=== PATIENT | male | born 1935 | race Caucasian/White ===

== ENCOUNTER 2018-08-02 00:51 | Observation (INO) | payer MEDICARE, OTHER ==
[2018-08-02 01:29] LABS: APPEARANCE,URINE CLEAR; BILIRUBIN,URINE NEGATIVE (NEGATIVE); COLOR,URINE COLORLESS; GLUCOSE, URINE >=500 mg/dL (NEGATIVE); KETONES,URINE NEGATIVE (NEGATIVE); LEUKOCYTE ESTERASE,URINE NEGATIVE (NEGATIVE); NITRITE,URINE NEGATIVE (NEGATIVE); PROTEIN,URINE NEGATIVE (NEGATIVE); URINE SPECIFIC GRAVITY 1.001; UROBILINOGEN,URINE NEGATIVE mg/dL (<2.0)
--- NOTE | 2018-08-02 01:35 | ER Document Report ---
ED General - General Chief Complaint: General Weakness Stated Complaint: WEAKNESS Time Seen by Provider: 08/02/18 01:19 Notes: Patient is an 83-year-old male that comes to the emergency department for chief complaint of family stating that he was acting confused, slurring his words, and he had a right-sided facial droop. They noticed it when they came home at approximately 10:30 pm daughter states. Duration of symptoms uncertain. They state the facial droop resolved, the slurred words resolved, he is still slightly confused below his baseline. They noticed his blood pressure and blood sugar were both up. He comes by EMS, blood pressure initially in the systolic of 220s, given 0.25 (?) mg of clonidine by EMS. He was formally treated for diabetes but is not currently, he is treated for hypertension with losartan and metoprolol, remaining medical history includes CAD with TX and stents, on clopidogrel, AICD. TRAVEL OUTSIDE OF THE [place] IN LAST 30 DAYS: No - Related Data Allergies/Adverse Reactions: No Known Allergies Allergy (Verified 08/02/18 01:31) Past Medical History - General Information source: Patient - Social History Smoking Status: Never Smoker Frequency of alcohol use: None Drug Abuse: None Lives with: Family Family History: DM, Hypertension, Other - cancer. denies: Reviewed & Not Pertinent - Past Medical History Cardiac Medical History: Reports: Hx Coronary Artery Disease, Hx Heart Attack, H x Hypercholesterolemia, Hx Hypertension Neurological Medical History: Reports: Hx Migraine Endocrine Medical History: Reports: Hx Diabetes Mellitus Type 2, Hx Hypothyroidism Renal/ Medical History: Denies: Hx Peritoneal Dialysis GI Medical History: Reports: Hx Diverticulitis Psychiatric Medical History: Denies: Hx Depression Past Surgical History: Reports: Hx Abdominal Surgery - hiatal hernia., Hx Cardiac Catheterization, Hx Cardiac Surgery - packemaker., Hx Cholecystectomy, Hx Coronary Artery Bypass Graft, Hx Open Heart Surgery - valve replacement, pacemaker., Hx Valve Replacement, Other - Multiple colonocopies - Immunizations Immunizations up to date: Yes Hx Diphtheria, Pertussis, Tetanus Vaccination: Yes Hx Pneumococcal Vaccination: 06/05/15 Review of Systems - Review of Systems Constitutional: No symptoms reported EENT: No symptoms reported Cardiovascular: No symptoms reported Respiratory: No symptoms reported Gastrointestinal: No symptoms reported Genitourinary: No symptoms reported Male Genitourinary: No symptoms reported Musculoskeletal: No symptoms reported Skin: No symptoms reported Hematologic/Lymphatic: No symptoms reported Neurological/Psychological: See HPI Physical Exam - Vital signs Vitals: Temp Resp BP Pulse Ox 97.9 F 13 194/120 H 99 08/02/18 00:59 08/02/18 00:59 08/02/18 00:59 08/02/18 00:59 - Notes Notes: GENERAL: Alert, interacts well. No acute distress. HEAD: Normocephalic, atraumatic. EYES: Pupils equal, round, and reactive to light. Extraocular movements intact. ENT: Oral mucosa moist, tongue midline. Oropharynx unremarkable. Airway patent. Nares patent, no nasal septal hematoma, TM's intact. NECK: Full range of motion. Supple. Trachea midline. LUNGS: Clear to auscultation bilaterally, no wheezes, rales, or rhonchi. No respiratory distress. HEART: Regular rate and rhythm. No murmur ABDOMEN: Soft, non-tender. Non-distended. Bowel sounds present in all 4 negar drants. GENITOURINARY: Deferred EXTREMITIES: Moves all 4 extremities spontaneously. No edema, normal radial and dorsalis pedis pulses bilaterally. No cyanosis. BACK: no cervical, thoracic, lumbar midline tenderness. No saddle anesthesia, normal distal neurovascular exam. NEUROLOGICAL: Alert and oriented to person, place, events, but not year. Normal speech. [cranial nerves II through XII grossly intact]. PSYCH: Normal affect, normal mood. SKIN: Warm, dry, normal turgor. No rashes or lesions noted. Course - Re-evaluation Re-evalutation: On my evaluation patient does not have neurological deficit. Family reports he was slurring his words, had a right-sided facial droop, and was confused. He got the year wrong but otherwise is oriented. Patient was extremely hypertensive initially, given clonidine, his blood pressure plummeted from 220 to 120 systolic. I suspect hypertensive emergency causing neurological symptoms versus TIA. CAT scan of the head unremarkable, chest x-ray unremarkable, general workup unremarkable. Vision remains asymptomatic on reevaluation. Discussed with family. Blood pressure started to trend back up, probably will rebound after clonidine, I recommend admission for neurological symptoms with hypertensive emergency versus TIA. Family is very agreeable with this, patient agreeable with this as well. Discussed with Dr. Arauz. Discussed with Dr. Roblero, patient admitted to the [facility]. - Vital Signs Vital signs: Temp Pulse Resp BP Pulse Ox 97.3 F 58 L 14 142/67 H 100 08/02/18 05:05 08/02/18 05:05 08/02/18 05:05 08/02/18 05:05 08/02/18 05:05 - Laboratory Result Diagrams: 08/02/18 01:27 08/02/18 01:27 Laboratory results interpreted by me: 08/02/18 08/02/18 08/02/18 01:13 01:27 01:27 Hgb 11.7 L Hct 36.3 L MCH 25.7 L RDW 20.9 H Sodium 132.5 L Chloride 96 L BUN 33 H Creatinine 1.81 H Est GFR ( Amer) 44 L Est GFR (Non-Af Amer) 36 L Glucose 291 H Urine Glucose (UA) >=500 H Urine Blood SMALL H Discharge - Discharge Clinical Impression: Hypertensive emergency Altered mental status Qualifiers: Altered mental status type: unspecified Qualified Code(s): R41.82 - Altered mental status, unspecified Condition: Stable Disposition: ADMITTED INPATIENT Admitting Provider: Hospitalist Unit Admitted: [facility]
[2018-08-02 01:39] LABS: ABSOLUTE EOSINOPHILS # (AUTO) 0.3 10^3/uL (0.0-0.6); ABSOLUTE LYMPHOCYTES (AUTO) 1.2 10^3/uL (0.5-4.7); ABSOLUTE MONOCYTES (AUTO) 0.6 10^3/uL (0.1-1.4); ABSOLUTE NEUT (AUTO) 5.4 10^3/uL (1.7-8.2); BASOPHILS % (AUTO) 0.2 % (0-2); EOSINOPHILS % (AUTO) 3.4 % (0-6); HEMATOCRIT 36.3 % (37.9-51.0); HEMOGLOBIN 11.7 g/dL (13.5-17.0); LYMPHOCYTES % (AUTO) 16.2 % (13-45); MEAN CORPUSCULAR HEMOGLOBIN 25.7 pg (27.0-33.4); MEAN CORPUSCULAR HGB CONC 32.2 g/dL (32.0-36.0); MEAN CORPUSCULAR VOLUME 80 fl (80-97); MONOCYTES % (AUTO) 7.8 % (3-13); PLATELET COUNT 201 10^3/uL (150-450); RED BLOOD COUNT 4.55 10^6/uL (4.35-5.55); RED CELL DISTRIBUTION WIDTH 20.9 % (11.5-14.0); SEGMENTED NEUTROPHILS % (AUTO) 72.4 % (42-78); TOTAL CELLS COUNTED % (AUTO) 100 %; WHITE BLOOD COUNT 7.5 10^3/uL (4.0-10.5)
[2018-08-02 01:53] LABS: ALANINE AMINOTRANSFERASE 21 U/L (21-72); ALBUMIN 3.8 g/dL (3.5-5.0); ALKALINE PHOSPHATASE 87 U/L (38-126); ANION GAP 10 (5-19); ASPARTATE AMINO TRANSFERASE 17 U/L (17-59); BILIRUBIN,DIRECT 0.2 mg/dL (0.0-0.4); BILIRUBIN,TOTAL 0.5 mg/dL (0.2-1.3); BLOOD UREA NITROGEN 33 mg/dL (7-20); CALCIUM 8.8 mg/dL (8.4-10.2); CARBON DIOXIDE 27 mmol/L (22-30); CHLORIDE 96 mmol/L (98-107); CREATINE KINASE 65 U/L (55-170); GLUCOSE 291 mg/dL (75-110); POTASSIUM 4.7 mmol/L (3.6-5.0); SODIUM 132.5 mmol/L (137-145)
--- NOTE | 2018-08-02 02:03 | RADIOLOGY REPORT (SQ) ---
EXAM DESCRIPTION: CT HEAD WITHOUT IV CONTRAST COMPLETED DATE/TME: 08/02/2018 01:31 CLINICAL HISTORY: 83 years, Male, confusion, slurred speech COMPARISON: April 05, 2017 Technique: Contiguous axial images of the brain were obtained without the administration of intravenous contrast. Coronal and sagittal reformats obtained and reviewed. This exam was performed according to our departmental dose-optimization program which includes use of Automated Exposure Control, adjustment of the mA and/or kV according to patient size and/or use of iterative reconstruction technique. Findings: Brain: Mild cerebral atrophy. Periventricular and deep white matter hypodensities, most commonly due to nonspecific white matter chronic microvascular ischemia.No hemorrhage. No territorial infarct. No mass effect. No herniation. Ventricles: Within normal limits for patient's age. Bones: No acute osseous abnormality. Paranasal sinuses: Unremarkable. Mastoid air cells: Unremarkable. Soft tissues: No acute abnormality. IMPRESSION: No acute intracranial abnormalities.
[2018-08-02 02:05] LABS: CREATINE KINASE MB 1.93 ng/mL (<4.55); TROPONIN I 0.014 ng/mL
--- NOTE | 2018-08-02 02:05 | RADIOLOGY REPORT (SQ) ---
EXAM DESCRIPTION: XR CHEST 1 VIEW COMPLETED DATE/TME: 08/02/2018 01:32 CLINICAL HISTORY: 83 years, Male, AMS Comparison: None FINDINGS: Minimal left basilar subsegmental atelectasis. No pleural effusion. No pneumothorax. Cardiac silhouette is at the upper limits of normal for size. Pacemaker from a left subclavian approach. Coronary artery stent is noted. Patient has had a median sternotomy. No acute osseous abnormality. Soft tissues are unremarkable. IMPRESSION: No acute findings. No focal lung consolidation.
[2018-08-02] MEDS ORDERED: NITROGLYCERIN 0.4 MG/TAB 25 TAB/BOTTLE SL PRN (03:16)
[2018-08-02] MEDS ORDERED: DOCUSATE SODIUM 100 MG CAPSULE PO PRN (03:17)
[2018-08-02] MEDS ORDERED: MAGNESIUM HYDROXIDE SUSP 30 ML UDCUP PO PRN (03:17)
[2018-08-02] MEDS ORDERED: HYDRALAZINE HCL INJ/PF 20 MG/1 ML SDV IV PRN (03:17)
[2018-08-02] MEDS ORDERED: ACETAMINOPHEN 325 MG TABLET PO PRN (03:17)
[2018-08-02] MEDS ORDERED: ASPIRIN 325 MG TABLET, ENT COATED PO ONE (03:21)
[2018-08-02] MEDS ORDERED: ATORVASTATIN CALCIUM 40 MG TABLET PO ONE (03:45)
[2018-08-02] MEDS: HEPARIN SOD (PORCINE) 5,000 UNIT/ML 1 ML SYRINGE SUBCUT SCH ×3 (05:49→22:43)
[2018-08-02] MEDS: LANSOPRAZOLE 30 MG TAB.RAP.DR PO SCH ×2 (05:53→17:29)
--- NOTE | 2018-08-02 06:26 | PDOC H&P ---
History of Present Illness Admission Date/PCP: 08/02/18 03:20 GABINO PEREIRA MD Patient complains of: Slurred speech History of Present Illness: LILIA FANG is a 83 year old male with a past medical history of coronary artery disease, valve replacement x2, permanent pacemaker, type 2 diabetes, chronic kidney disease 3, and osteoarthritis. Patient was found by family at approximately 10:30 PM with symptoms of unclear onset of confusion, slurred speech, right-sided facial droop of unclear onset. EMS was called finding his blood pressure of 220/120 he receives clonidine and a blood glucose greater than 200. In the emergency room he has returned to his baseline with an unremarkable workup with exception to uncontrolled blood pressure and hyperglycemia. Patient denies recent change in medications but admits to dietary indiscretion. He denies palpitations, chest pain, headache and otherwise feels well. He denies previous episode. Past Medical History Cardiac Medical History: Reports: Coronary Artery Disease, Myocardial Infarction, Hyperlipidema, Hypertension Neurological Medical History: Reports: Migraine Endocrine Medical History: Reports: Diabetes Mellitus Type 2, Hypothyroidism GI Medical History: Reports: Diverticulitis Psychiatric Medical History: Denies: Depression Hematology: Reports: Anemia Past Surgical History Past Surgical History: Reports: Cardiac Catheterization, Cholecystectomy, Coronary Artery Bypass Graft, Valve Replacement, Other - Multiple colonocopies Social History Smoking Status: Former Smoker Frequency of Alcohol Use: None Hx Recreational Drug Use: No Drugs: None Hx Prescription Drug Abuse: No - Advance Directive Resuscitation Status: Full Code Family History Family History: DM, Hypertension, Other - cancer. denies: Reviewed & Not Pertinent Parental Family History Reviewed: Yes Children Family History Reviewed: Yes Sibling(s) Family History Reviewed.: Yes Medication/Allergy Home Medications: Atorvastatin Calcium [Lipitor 40 mg Tablet] 40 mg PO QHS 04/05/17 Clopidogrel Bisulfate [Plavix 75 mg Tablet] 75 mg PO DAILY 04/05/17 Cyanocobalamin (Vitamin B-12) [Vitamin B-12] 1,000 mcg PO DAILY 04/05/17 Cyclosporine 0.05% Oph Emulsio [Restasis 0.05% Oph Emulsion Pf 0.4 ml] 1 drop OU BID 04/05/17 Fenofibrate Nanocrystallized [Tricor 48 mg Tablet] 54 mg PO QHS 04/05/17 Folic Acid [Folvite 1 mg Tablet] 1 mg PO DAILY 04/05/17 Isosorbide Mononitrate [Isosorbide Mononitrate ER] 0.5 tab PO QAM 04/05/17 Leflunomide [Arava] 10 mg PO DAILY 04/05/17 Levothyroxine Sodium [Synthroid 0.05 mg Tablet] 0.05 mg PO DAILY 04/05/17 Loratadine [Claritin] 10 mg PO DAILY 04/05/17 Metoprolol Tartrate [Lopressor 25 mg Tablet] 12.5 mg PO Q12 04/05/17 Nitroglycerin [Nitrostat] 0.4 mg SL Q5MP PRN 04/05/17 Omeprazole 40 mg PO DAILY 04/05/17 Tramadol HCl/Acetaminophen [Ultracet 37.5 mg/325 mg Tablet] 1 tab PO Q8HP PRN 04/05/17 Prednisone 1 tab PO DAILY 04/06/17 Cefuroxime Axetil [Ceftin 250 mg Tablet] 1 tab PO BID #20 tablet 04/07/17 Allergies/Adverse Reactions: No Known Allergies Allergy (Verified 08/02/18 01:31) Review of Systems Constitutional: ABSENT: chills, fever(s), headache(s), weight gain, weight loss Eyes: ABSENT: visual disturbances Ears: ABSENT: hearing changes Cardiovascular: ABSENT: chest pain, dyspnea on exertion, edema, orthropnea, palpitations Respiratory: ABSENT: cough, hemoptysis Gastrointestinal: ABSENT: abdominal pain, constipation, diarrhea, hematemesis, hematochezia, nausea, vomiting Genitourinary: ABSENT: dysuria, hematuria Musculoskeletal: ABSENT: joint swelling Integumentary: ABSENT: rash, wounds Neurological: ABSENT: abnormal gait, abnormal speech, confusion, dizziness, focal weakness, syncope Psychiatric: ABSENT: anxiety, depression, homidical ideation, suicidal ideation Endocrine: ABSENT: cold intolerance, heat intolerance, polydipsia, polyuria Hematologic/Lymphatic: ABSENT: easy bleeding, easy bruising Physical Exam Vital Signs: Temp Pulse Resp BP Pulse Ox 97.3 F 58 L 14 142/67 H 100 08/02/18 05:05 08/02/18 05:05 08/02/18 05:05 08/02/18 05:05 08/02/18 05:05 Intake & Output 07/31/18 08/01/18 08/02/18 11:59 11:59 11:59 Weight 70.3 kg General appearance: PRESENT: no acute distress, cooperative, thin Head exam: PRESENT: atraumatic, normocephalic Eye exam: PRESENT: conjunctiva pink, EOMI, PERRLA. ABSENT: scleral icterus Ear exam: PRESENT: normal external ear exam Mouth exam: PRESENT: moist, tongue midline Neck exam: ABSENT: carotid bruit, JVD, lymphadenopathy, thyromegaly Respiratory exam: PRESENT: clear to auscultation hunter, tachypnea. ABSENT: rales, rhonchi, wheezes Cardiovascular exam: PRESENT: RRR, +S1, +S2, systolic murmur Pulses: PRESENT: normal dorsalis pedis pul Vascular exam: PRESENT: normal capillary refill GI/Abdominal exam: PRESENT: normal bowel sounds, soft. ABSENT: distended, guarding, mass, organolmegaly, rebound, tenderness Rectal exam: PRESENT: deferred Extremities exam: PRESENT: full ROM. ABSENT: calf tenderness, clubbing, pedal edema Neurological exam: PRESENT: alert, awake, oriented to person, oriented to place, oriented to time, oriented to situation, CN II-XII grossly intact. ABSENT: motor sensory deficit Psychiatric exam: PRESENT: appropriate affect, normal mood. ABSENT: homicidal ideation, suicidal ideation Skin exam: PRESENT: dry, intact, warm. ABSENT: cyanosis, rash Results Laboratory Results: 08/02/18 01:27 08/02/18 01:27 08/02/18 08/02/18 08/02/18 01:13 01:27 01:27 WBC 7.5 RBC 4.55 Hgb 11.7 L Hct 36.3 L MCV 80 MCH 25.7 L MCHC 32.2 RDW 20.9 H Plt Count 201 Seg Neutrophils % 72.4 Lymphocytes % 16.2 Monocytes % 7.8 Eosinophils % 3.4 Basophils % 0.2 Absolute Neutrophils 5.4 Absolute Lymphocytes 1.2 Absolute Monocytes 0.6 Absolute Eosinophils 0.3 Absolute Basophils 0.0 Sodium 132.5 L Potassium 4.7 Chloride 96 L Carbon Dioxide 27 Anion Gap 10 BUN 33 H Creatinine 1.81 H Est GFR ( Amer) 44 L Est GFR (Non-Af Amer) 36 L Glucose 291 H Calcium 8.8 Total Bilirubin 0.5 AST 17 ALT 21 Alkaline Phosphatase 87 Total Protein 7.0 Albumin 3.8 Urine Color COLORLESS Urine Appearance CLEAR Urine pH 7.0 Ur Specific [place] 1.001 Urine Protein NEGATIVE Urine Glucose (UA) >=500 H Urine Ketones NEGATIVE Urine Blood SMALL H Urine Nitrite NEGATIVE Ur Leukocyte Esterase NEGATIVE Urine WBC (Auto) 0 Urine RBC (Auto) 08/02/18 01:40 WBC RBC Hgb Hct MCV MCH MCHC RDW Plt Count Seg Neutrophils % Lymphocytes % Monocytes % Eosinophils % Basophils % Absolute Neutrophils Absolute Lymphocytes Absolute Monocytes Absolute Eosinophils Absolute Basophils Sodium Potassium Chloride Carbon Dioxide Anion Gap BUN Creatinine Est GFR ( Amer) Est GFR (Non-Af Amer) Glucose Calcium Total Bilirubin AST ALT Alkaline Phosphatase Total Protein Albumin Urine Color Cancelled Urine Appearance Cancelled Urine pH Cancelled Ur Specific [place] Cancelled Urine Protein Cancelled Urine Glucose (UA) Cancelled Urine Ketones Cancelled Urine Blood Cancelled Urine Nitrite Cancelled Ur Leukocyte Esterase Cancelled Urine WBC (Auto) Cancelled Urine RBC (Auto) Cancelled 08/02/18 08/02/18 01:27 01:27 Creatine Kinase 65 CK-MB (CK-2) 1.93 Troponin I 0.014 Impressions: Head CT 08/02/18 01:31 IMPRESSION: No acute intracranial abnormalities. Chest X-Ray 08/02/18 01:32 IMPRESSION: No acute findings. No focal lung consolidation. Assessment & Plan - Diagnosis (1) Hypertensive emergency Is this a current diagnosis for this admission?: Yes Plan: Resume outpatient regiment, hydralazine and Lopressor as needed (2) TIA (transient ischemic attack) Is this a current diagnosis for this admission?: Yes Plan: Likely secondary to #1, however increased risk with prosthetic cardiac valves, patient is unaware of his cardiac valves were placed will obtain records from [place], follow-up MRI, 2D echo and carotid Doppler. Continue aspirin and Plavix (3) Diabetes Qualifiers: Diabetes mellitus type: type 2 Diabetes mellitus complication status: with kidney complications Chronic kidney disease stage: stage 3 (moderate) Is this a current diagnosis for this admission?: Yes Plan: Suboptimal control, evaluate A1c, hold metformin, continue Humalog sliding scale. Consider long-acting insulin.
[2018-08-02 07:17] LABS: ABSOLUTE EOSINOPHILS # (AUTO) 0.3 10^3/uL (0.0-0.6); ABSOLUTE LYMPHOCYTES (AUTO) 1.3 10^3/uL (0.5-4.7); ABSOLUTE MONOCYTES (AUTO) 0.5 10^3/uL (0.1-1.4); ABSOLUTE NEUT (AUTO) 4.1 10^3/uL (1.7-8.2); BASOPHILS % (AUTO) 0.8 % (0-2); EOSINOPHILS % (AUTO) 4.6 % (0-6); HEMATOCRIT 33.9 % (37.9-51.0); LYMPHOCYTES % (AUTO) 20.3 % (13-45); MEAN CORPUSCULAR HEMOGLOBIN 25.5 pg (27.0-33.4); MEAN CORPUSCULAR HGB CONC 32.5 g/dL (32.0-36.0); MEAN CORPUSCULAR VOLUME 79 fl (80-97); MONOCYTES % (AUTO) 8.3 % (3-13); PLATELET COUNT 201 10^3/uL (150-450); RED BLOOD COUNT 4.32 10^6/uL (4.35-5.55); RED CELL DISTRIBUTION WIDTH 20.9 % (11.5-14.0); TOTAL CELLS COUNTED % (AUTO) 100 %; WHITE BLOOD COUNT 6.2 10^3/uL (4.0-10.5)
[2018-08-02 08:12] LABS: ERYTHROCYTE SEDIMENTATION RATE 15 mm/hr (0-20)
[2018-08-02 08:16] LABS: CHOLESTEROL 163.46 mg/dL (0-200); TRIGLYCERIDES 87 mg/dL (<150)
[2018-08-02 08:27] LABS: DIRECT LDL 102 mg/dL (<100)
[2018-08-02] MEDS: ISOSORBIDE MONONITRATE 30 MG TAB.ER.24H PO SCH (08:46)
[2018-08-02] MEDS: METOPROLOL TARTRATE 25 MG TABLET PO SCH ×2 (09:26→22:45)
[2018-08-02] MEDS: PREDNISONE 5 MG TABLET PO SCH (09:26)
[2018-08-02] MEDS: CLOPIDOGREL BISULFATE 75 MG TABLET PO SCH (09:27)
[2018-08-02] MEDS: FOLIC ACID 1 MG TABLET PO SCH (09:27)
[2018-08-02] MEDS: LORATADINE 10 MG TABLET PO SCH (09:27)
[2018-08-02] MEDS: LEFLUNOMIDE 20 MG TABLET PO SCH (09:27)
[2018-08-02 14:19] LABS: FREE T3 2.75 pg/mL (2.77-5.27); FREE T4 (FREE THYROXINE) 1.16 ng/dL (0.78-2.19)
--- NOTE | 2018-08-02 14:48 | RADIOLOGY REPORT (SQ) ---
EXAM DESCRIPTION: CAROTID DOPPLER COMPLETED DATE/TIME: 08/02/2018 1:19 pm REASON FOR STUDY: tia R facial droop COMPARISON: None. TECHNIQUE: Grayscale ultrasound, Doppler velocity and spectra, and color Doppler images acquired of the extra-cranial carotid and vertebral arteries. Images stored on PACS. LIMITATIONS: None. FINDINGS: RIGHT CAROTID CCA Velocities: Within normal limits. ICA Velocities Peak systolic 1.55 m/s. End diastolic 0.53 m/s. Proximal ICA/CCA peak systolic ratio 2.7. Moderate plaque proximal ICA. LEFT CAROTID CCA Velocities: Within normal limits. ICA Velocities Peak systolic 0.92 m/s. End diastolic 0.32 m/s. Proximal ICA/CCA peak systolic ratio 1.5. Moderate plaque bulb and proximal ICA. VERTEBRAL ARTERIES: Antegrade flow. Normal waveforms. SUBCLAVIAN ARTERIES: Not imaged. OTHER: No other significant finding. 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 Left: Less than 50% stenosis ICA. COMMENT: Quality ID #[id number]: Velocity criteria are extrapolated from the diameter data as defined by t he Society of Radiologists in Ultrasound Consensus Conference. Radiology 2003: 229; 340-346. TECHNICAL DOCUMENTATION: JOB ID: [id number] [employer]- All Rights Reserved Reading location - IP/workstation name: [email or web address]
--- NOTE | 2018-08-02 20:36 | Progress Note ---
Provider Note Provider Note: LILIA FANG is a 83 year old male with a past medical history of coronary artery disease, valve replacement x2, permanent pacemaker, type 2 diabetes, chronic kidney disease 3, and osteoarthritis who was admitted early this morning (3 am) for HTN emergency and TIA workup. Overnight events, vital signs, laboratory evaluations, and imaging reviewed. Briefly met w/ patient and family. Agree with the plan of care as established by Albertina. (1) Hypertensive emergency Now normotenstive; BP today 134/58 Continue home regiment of isosorbid, and metoprolol with IV hydralazine and Lopressor as needed. Cardiac diet. (2) TIA (transient ischemic attack) Likely secondary to #1, however increased risk with prosthetic cardiac valves, patient is unaware of his cardiac valves were placed will obtain records from [place], follow-up MRI, 2D echo and carotid Doppler. Admited to [facility] on telemetry; no abnormal rhythms noted. Head CT is benign. Not a candidate for MRI r/t pacemaker. Echo pending. Carotid dopplers are negative for hemodynamically significant stenosis. A1C 10.7%. Thyroid panel, lipid panel, and ESR are acceptable. Continue aspirin and Plavix (3) Diabetes A1C 10.7% Pt reports he has been diet controlled for several months; stopped previous unknown oral medication due to rash development. Consistent carb diet w/ Humalog sliding scale. Pt resistant to d/c on insulin therapy. Will need to identify possible allergy prior to initiating oral antidiabetic agents. Will ask registered medical assistant and patient educator to meet with patient. Anticipate d/c in AM once echo results are available.
[2018-08-02] MEDS ORDERED: ATORVASTATIN CALCIUM 40 MG TABLET PO SCH (22:00)
[2018-08-02] MEDS ORDERED: FENOFIBRATE NANOCRYSTALLIZED 48 MG TABLET PO SCH (22:00)
--- NOTE | 2018-08-02 22:12 | EKG REPORT ---
SEVERITY:- ABNORMAL ECG - SINUS RHYTHM CONSIDER ANTEROSEPTAL INFARCT ABNORMAL T, CONSIDER ISCHEMIA, LATERAL LEADS : Confirmed by: Cathy Hilton 02-Aug-2018 22:12:04
[2018-08-03 05:15] LABS: ABSOLUTE BASOPHILS # (AUTO) 0.1 10^3/uL (0.0-0.2); ABSOLUTE EOSINOPHILS # (AUTO) 0.2 10^3/uL (0.0-0.6); ABSOLUTE LYMPHOCYTES (AUTO) 1.3 10^3/uL (0.5-4.7); ABSOLUTE MONOCYTES (AUTO) 0.4 10^3/uL (0.1-1.4); ABSOLUTE NEUT (AUTO) 5.4 10^3/uL (1.7-8.2); BASOPHILS % (AUTO) 1.1 % (0-2); EOSINOPHILS % (AUTO) 2.8 % (0-6); HEMATOCRIT 33.3 % (37.9-51.0); HEMOGLOBIN 11.1 g/dL (13.5-17.0); LYMPHOCYTES % (AUTO) 17.2 % (13-45); MEAN CORPUSCULAR HEMOGLOBIN 25.7 pg (27.0-33.4); MEAN CORPUSCULAR HGB CONC 33.2 g/dL (32.0-36.0); MEAN CORPUSCULAR VOLUME 78 fl (80-97); MONOCYTES % (AUTO) 5.6 % (3-13); PLATELET COUNT 199 10^3/uL (150-450); RED BLOOD COUNT 4.29 10^6/uL (4.35-5.55); RED CELL DISTRIBUTION WIDTH 20.7 % (11.5-14.0); SEGMENTED NEUTROPHILS % (AUTO) 73.3 % (42-78); TOTAL CELLS COUNTED % (AUTO) 100 %; WHITE BLOOD COUNT 7.4 10^3/uL (4.0-10.5)
[2018-08-03] MEDS: HEPARIN SOD (PORCINE) 5,000 UNIT/ML 1 ML SYRINGE SUBCUT SCH (05:36)
[2018-08-03] MEDS: LANSOPRAZOLE 30 MG TAB.RAP.DR PO SCH (05:38)
[2018-08-03] MEDS: ISOSORBIDE MONONITRATE 30 MG TAB.ER.24H PO SCH (08:15)
[2018-08-03] MEDS: LEFLUNOMIDE 20 MG TABLET PO SCH (09:01)
[2018-08-03] MEDS: FOLIC ACID 1 MG TABLET PO SCH (09:02)
[2018-08-03] MEDS: PREDNISONE 5 MG TABLET PO SCH (09:02)
[2018-08-03] MEDS: CLOPIDOGREL BISULFATE 75 MG TABLET PO SCH (09:02)
[2018-08-03] MEDS: LORATADINE 10 MG TABLET PO SCH (09:02)
[2018-08-03] MEDS: METOPROLOL TARTRATE 25 MG TABLET PO SCH (09:03)
[2018-08-03] MEDS ORDERED: ASPIRIN 81 MG TABLET, ENT COATED PO SCH (10:00)
--- NOTE | 2018-08-03 10:48 | XCELERA REPORT ---
[address] [address] Transthoracic Echocardiogram Report Name: LILIA FANG Age: 83 yrs Gender: Male : 1935 Patient Status: Inpatient Patient Location: [address] [place], [place] [address] Study Date: 08/02/2018 10:33 AM Height: 68 in Weight: 154 lb BSA: 1.8 m2 Procedure: A two-dimensional transthoracic echocardiogram with color flow and Doppler was performed. The study was technically difficult with many images being suboptimal in quality. Reason For Study: TIA History: TIA. Ordering Physician: LILIA BRIGGS Performed By: Mila Hawkins Interpretation Summary There is no obvious cardiac source of embolus noted on this transthoracic echocardiogram. Follow-up with a JESSIE is suggested if cardiac source is still suspected. RECOMMEND ANTIBIOTICS FOR SBE PROPHYLAXIS. TIA The left ventricle is normal in size. There is mild concentric left ventricular hypertrophy. LV EF is 60% The left ventricular ejection fraction is within normal limits. Doppler measurements suggest impaired left ventricular relaxation, which is associated with grade I/IV or mild diastolic dysfunction The apicalinferior wall and the apical IV septalwalls are mildlly dyskinetic.Th st of the LV valladares contract bormally. The right ventricle is not well visualized secondary to technical limitations Possibe mild RV enlargement.Pacer /AICD lead in RA and RV. The right ventricular systolic function is normal. The right atrium is normal. The left atrial size is normal. There is a bioprosthetic mitral valve. Norally functioning valve with race MR.No vegetations seen. No aortic regurgitation is present. There is a bioprosthetic aortic valve. Peak Gradient is 27 mm of Hg , which may be normal for a bioprosthetic valve. There is a mild to moderate amount of tricuspid regurgitation There is mild pulmonary hypertension by echo RVSP is 39 mm of Hg , with RA mean of10. There is a mild amount of pulmonic regurgitation The aortic root is normal size. There is no pericardial effusion. There is no obvious cardiac source of embolus noted on this transthoracic echocardiogram. Follow-up with a JESSIE is suggested if cardiac source is still suspected RECOMMEND ANTIBIOTICS FOR SBE PROPHYLAXIS MMode/2D Measurements & Calculations RVDd: 3.2 cm LVIDd: 4.5 cm FS: 24.0 % Ao root diam: 2.3 cm IVSd: 1.3 cm LVIDs: 3.4 cm EDV(Teich): 94.0 ml Ao root area: 4.2 cm2 LVPWd: 1.2 cm ESV(Teich): 48.9 ml LA dimension: 3.8 cm EF(Teich): 47.9 % LVOT diam: 1.8 cm LVOT area: 2.7 cm2 Doppler Measurements & Calculations MV E max lidya: MV P1/2t max lidya: Ao V2 max: LV V1 max P.9 cm/sec 121.4 cm/sec 257.9 cm/sec 5.7 mmHg MV A max lidya: MV P1/2t: 107.1 msec Ao max PG: LV V1 mean P.8 cm/sec MVA(P1/2t): 2.1 cm2 26.6 mmHg 2.8 mmHg MV E/A: 0.92 MV dec slope: Ao V2 mean: LV V1 max: 183.2 cm/sec 119.0 cm/sec 332.1 cm/sec2 Ao mean PG: LV V1 mean: MV dec time: 0.36 sec15.6 mmHg 76.1 cm/sec Ao V2 VTI: 61.6 cm LV V1 VTI: 24.1 cm MCKAYLA(I,D): 1.1 cm2 MCKAYLA(V,D): 1.2 cm2 SV(LVOT): 64.7 ml PA V2 max: PI end-d lidya: TR max lidya: 79.5 cm/sec 91.1 cm/sec 267.6 cm/sec PA max P.5 mmHg TR max P.6 mmHg MV P1/2t-pr_phl: 107.1 msec Left Ventricle The left ventricle is normal in size. There is mild concentric left ventricular hypertrophy. LV EF is 60%. The left ventricular ejection fraction is within normal limits. Doppler measurements suggest impaired left ventricular relaxation, which is associated with grade I/IV or mild diastolic dysfunction. The apicalinferior wall and the apical IV septalwalls are mildlly dyskinetic.Th st of the LV valladares contract bormally. Right Ventricle The right ventricle is not well visualized secondary to technical limitations. Possibe mild RV enlargement.Pacer /AICD lead in RA and RV. The right ventricular systolic function is normal. Atria The right atrium is normal. The left atrial size is normal. Mitral Valve There is a bioprosthetic mitral valve. Norally functioning valve with race MR.No vegetations seen. Aortic Valve There is no aortic valvular vegetation. No aortic regurgitation is present. There is a bioprosthetic aortic valve. Peak Gradient is 27 mm of Hg , which may be normal for a bioprosthetic valve. Tricuspid Valve There is no tricuspid stenosis. There is a mild to moderate amount of tricuspid regurgitation. There is mild pulmonary hypertension by echo. RVSP is 39 mm of Hg , with RA mean of10. Pulmonic Valve There is no pulmonic valvular stenosis. There is a mild amount of pulmonic regurgitation. Great Vessels The aortic root is normal size. Effusions There is no pericardial effusion. : LILIA BRIGGS > Carlota Cardona
[2018-08-03] MEDS ORDERED: DEXTROSE 40% GEL 15 GM TUBE PO PRN ×2 (11:35)
[2018-08-03] MEDS ORDERED: DEXTROSE 50%-WATER 25 GM/50 ML DISP.SYRIN IV PRN ×2 (11:35)
[2018-08-03] MEDS ORDERED: GLUCAGON,HUMAN RECOMB 1 MG INJ IM PRN (11:35)
[2018-08-03] MEDS ORDERED: INSULIN GLARGINE,HUM.REC.ANLOG 300 UNIT/3 ML INSULN.PEN SUBCUT SCH (11:45)
[2018-08-03 12:28] VITALS: BP 142/67
[2018-08-03] MEDS ORDERED: INSULIN REG, HUMAN 100 UNIT/ML 3 ML VIAL (PYX) SUBCUT SCH (16:00)
--- NOTE | 2018-08-07 13:23 | PDOC DISCHARGE SUMMARY ---
General - Admit/Disc Date/PCP Admission Date/Primary Care Provider: 08/02/18 03:20 GABINO PEREIRA MD Discharge Date: 08/03/18 - Discharge Diagnosis (1) Diabetes Is this a current diagnosis for this admission?: Yes Summary: A1C 10.7% Pt reports he has been diet controlled for several months; stopped previous unknown oral medication due to rash development. While admitted, his blood glucose was managed with sliding scale humalog. freight elevator erector and patient educator to meet with patient. Patient and were concerned about starting oral therapy as they believe that he previously had a reaction to an unknown diabetic medication. They are agreeable to long acting insulin; which is warranted given his A1c is >10. He was started on Lantus 10 units once daily. He is advised to keep a log of his blood glucose to present to his PCP at follow up appointment. (2) Hypertensive emergency Is this a current diagnosis for this admission?: Yes Summary: Adequate blood pressure achieved through resumption of home medication regiment: metoprolol, isosorbid, and furosemide. Recommend low sodium diet. Keep blood pressure log and present to PCP at follow up visit. (3) Rheumatoid arthritis Is this a current diagnosis for this admission?: Yes Summary: Continue outpatient regiment. (4) TIA (transient ischemic attack) Is this a current diagnosis for this admission?: Yes Summary: Likely secondary to #1, however increased risk with prosthetic cardiac valves, HTN, and DM2. Admited to [facility] on continuous cardiac telemetry; no abnormal rhythms noted. Head CT is benign. Not a candidate for MRI r/t pacemaker. Echocardiogram revealed LVEF 60% with grade I diastolic disfunction, and mild pulmonary hypertension. No obvious cardiac source/embolus to explain TIA symtoms. Carotid dopplers are negative for hemodynamically significant stenosis. A1C 10.7%. Thyroid panel, lipid panel, and ESR are acceptable. Patient is encouraged to continue aspirin, Plavix, and statin therapy. No indications for anticoagulation. Recommend obtaining better glucose and blood pressure control for risk modification. May also benefit from Event monitoring to assess for arrhythmias as cause of his symptoms. Patient is discharged to home in stable condition. He is advised to follow up with his primary care provier within 1 week and his blasting coal miner as scheduled. Return to the emergency department as needed for concerning symptoms. - Additional Information Resuscitation Status: Full Code Discharge Diet: Cardiac, Diabetic Discharge Activity: Activity As Tolerated, Balance Activity w/Rest, Weigh Daily Prescriptions: Insulin Glargine,Hum.rec.anlog [Lantus Insulin 100 Unit/mL] 10 unit SUBCUT DAILY #1 insuln.pen Pen Needle, Diabetic [Insulin Pen Needle] 1 each MC DAILY #30 dis.needle Home Medications: Clopidogrel Bisulfate [Plavix 75 mg Tablet] 75 mg PO DAILY 04/05/17 Cyanocobalamin (Vitamin B-12) [Vitamin B-12] 1,000 mcg PO DAILY 04/05/17 Fenofibrate Nanocrystallized [Tricor 48 mg Tablet] 54 mg PO QHS MDD note dose 04/05/17 Folic Acid [Folvite 1 mg Tablet] 1 mg PO DAILY 04/05/17 Isosorbide Mononitrate [Isosorbide Mononitrate ER] 15 mg PO QAM 04/05/17 Levothyroxine Sodium [Synthroid 0.05 mg Tablet] 0.05 mg PO Q6AM 04/05/17 Loratadine [Claritin] 10 mg PO DAILY 04/05/17 Metoprolol Tartrate [Lopressor 25 mg Tablet] 12.5 mg PO Q12 04/05/17 Omeprazole 40 mg PO DAILY 04/05/17 Tramadol HCl/Acetaminophen [Ultracet 37.5 mg/325 mg Tablet] 1 tab PO Q12HP PRN 04/05/17 Prednisone 5 mg PO DAILY 04/06/17 Atorvastatin Calcium [Lipitor 80 mg Tablet] 80 mg PO QHS 08/02/18 Furosemide [Lasix 20 mg Tablet] 20 mg PO 08/02/18 Gabapentin [Neurontin 300 mg Capsule] 600 mg PO Q8 08/02/18 Acetaminophen [Tylenol 325 mg Tablet] 650 mg PO Q4HP PRN tablet 08/03/18 Aspirin [Ecotrin 81 mg EC Tablet] 162 mg PO DAILY tabec 08/03/18 Insulin Glargine,Hum.rec.anlog [Lantus Insulin 100 Unit/mL] 10 unit SUBCUT DAILY #1 insuln.pen 08/03/18 Lansoprazole [Prevacid 30 mg Odt Tablet] 30 mg PO BID@0600,1700 tab. 08/03/18 Leflunomide [Arava 20 mg Tablet] 10 mg PO DAILY tablet 08/03/18 Nitroglycerin [Nitrostat 0.4 mg (1/150 Gr) Tabs 25/Bottle] 1 tab SL Q5MP PRN bottle 08/03/18 Pen Needle, Diabetic [Insulin Pen Needle] 1 each MC DAILY #30 dis.needle 08/03/18 History of Present Illness History of Present Illness: Per H&P by Dr. Roblero: LILIA FANG is a 83 year old male with a past medical history of coronary artery disease, valve replacement x2, permanent pacemaker, type 2 diabetes, chronic kidney disease 3, and osteoarthritis. Patient was found by family at approximately 10:30 PM with symptoms of unclear onset of confusion, slurred speech, right-sided facial droop of unclear onset. EMS was called finding his blood pressure of 220/120 he receives clonidine and a blood glucose greater than 200. In the emergency room he has returned to his baseline with an unremarkable workup with exception to uncontrolled blood pressure and hyperglycemia. Patient denies recent change in medications but admits to dietary indiscretion. He denies palpitations, chest pain, headache and otherwise feels well. He denies previous episode. Physical Exam Vital Signs: Temp Pulse Resp BP Pulse Ox 97.9 F 60 18 142/67 H 96 08/03/18 12:27 08/03/18 12:27 08/03/18 12:27 08/03/18 12:27 08/03/18 12:27 General appearance: PRESENT: no acute distress, cooperative, well-developed, well-nourished Head exam: PRESENT: atraumatic, normocephalic Eye exam: PRESENT: conjunctiva pink, EOMI, PERRLA. ABSENT: scleral icterus Ear exam: PRESENT: normal external ear exam Mouth exam: PRESENT: moist, tongue midline Neck exam: ABSENT: carotid bruit, JVD, lymphadenopathy, thyromegaly Respiratory exam: PRESENT: clear to auscultation hunter, symmetrical, unlabored. ABSENT: rales, rhonchi, wheezes Cardiovascular exam: PRESENT: RRR, +S1, +S2, systolic murmur. ABSENT: diastolic murmur, rubs Pulses: PRESENT: normal dorsalis pedis pul Vascular exam: PRESENT: normal capillary refill GI/Abdominal exam: PRESENT: normal bowel sounds, soft. ABSENT: distended, guard ing, mass, organolmegaly, rebound, tenderness Rectal exam: PRESENT: deferred Extremities exam: PRESENT: full ROM. ABSENT: calf tenderness, clubbing, pedal edema Neurological exam: PRESENT: alert, awake, oriented to person, oriented to place, oriented to time, oriented to situation, CN II-XII grossly intact. ABSENT: motor sensory deficit Psychiatric exam: PRESENT: appropriate affect, normal mood. ABSENT: homicidal ideation, suicidal ideation Skin exam: PRESENT: dry, intact, warm. ABSENT: cyanosis, rash Results Laboratory Results: 08/03/18 04:58 08/02/18 01:27 08/02/18 08/02/18 01:27 01:27 Creatine Kinase 65 CK-MB (CK-2) 1.93 Troponin I 0.014 Impressions: Head CT 08/02/18 01:31 IMPRESSION: No acute intracranial abnormalities. Chest X-Ray 08/02/18 01:32 IMPRESSION: No acute findings. No focal lung consolidation. Carotid Doppler Study 08/02/18 03:18 IMPRESSION: Right: 50- 69% stenosis proximal ICA. Left: Less than 50% stenosis ICA. Qualifiers - * PATIENT BEING DISCHARGED WITH ANY OF THE FOLLOWING DIAGNOSIS: No Plan Discharge Plan: Patient is discharged to home in the care of family members. He is instructed to follow up with his primary care provider within 1 week. Patient has been educated on the use of once daily Lantus for management of DM2 (A1C 10.7%) He is advised to keep a log of blood sugars to take with him to his follow up appointment. HE is instructed to follow up with his established blasting coal miner as scheduled. Return to the emergency department as needed for any concerning symptoms. Time Spent: Greater than 30 Minutes
== END 2018-08-03 13:03 | disposition home or self-care (01) ==
LOC: ER 00:51 → EH 03:20 → INTOOBSV 03:20 → 3W 04:45
PROVIDERS: ADMIT Internal Medicine; ATTEND Internal Medicine
DX: I16.1 Hypertensive emergency (principal); I12.9 Hypertensive chronic kidney disease with stage 1 through stage 4 chronic kidney disease, or unspecified chronic kidney disease; G45.9 Transient cerebral ischemic attack, unspecified; E11.22 Type 2 diabetes mellitus with diabetic chronic kidney disease; E11.65 Type 2 diabetes mellitus with hyperglycemia; N18.3 Chronic kidney disease, stage 3 (moderate); I25.10 Atherosclerotic heart disease of native coronary artery without angina pectoris; M06.9 Rheumatoid arthritis, unspecified; I27.20 Pulmonary hypertension, unspecified; E03.9 Hypothyroidism, unspecified; E78.5 Hyperlipidemia, unspecified; M19.90 Unspecified osteoarthritis, unspecified site; I25.2 Old myocardial infarction; Z79.4 Long term (current) use of insulin; Z79.02 Long term (current) use of antithrombotics/antiplatelets; Z79.899 Other long term (current) drug therapy; Z79.82 Long term (current) use of aspirin; Z95.2 Presence of prosthetic heart valve; Z90.49 Acquired absence of other specified parts of digestive tract; Z95.1 Presence of aortocoronary bypass graft; Z87.891 Personal history of nicotine dependence; Z82.49 Family history of ischemic heart disease and other diseases of the circulatory system; Z95.810 Presence of automatic (implantable) cardiac defibrillator; Z95.5 Presence of coronary angioplasty implant and graft
CPT/HCPCS: 93005; 99285; 36415 ×2; 84439; 82553; 82962 ×2; 82550; 84443; 85025 ×2; 85652; 80053; 81001; 84484; 84481; 83036; 80061; 93306; 93880; 71045; 70450; 93010; G0378 ×2; A9270 ×18; J1644 ×2; J3490 ×2; J1815; J7512

== ENCOUNTER 2018-09-15 02:32 | Inpatient (IN) | payer MEDICARE, OTHER ==
--- NOTE | 2018-09-15 03:18 | ER Document Report ---
ED GI Bleed / Rectal Pain - General Chief Complaint: Bloody Stools Stated Complaint: BLEEDING Time Seen by Provider: 09/15/18 03:10 Notes: Patient is an 83-year-old male that comes to the emergency department for chief complaint of bright red blood per rectum. He noticed at 1:30 AM blood trickling down his leg, he has had for bloody bowel movement since then, mainly blood with a little bit of mixed in stool. He is on Plavix. He had a colonoscopy within the past year that showed diverticulosis but no other concerning findings. He denies dizziness, passing out, abdominal pain, nausea, vomiting. He denies history of hemorrhoids. Past medical history includes heart valve replacement (cow valve), AICD, insulin-dependent diabetes, GERD, hypothyroidism. TRAVEL OUTSIDE OF THE [place] IN LAST 30 DAYS: No - Related Data Allergies/Adverse Reactions: No Known Allergies Allergy (Verified 08/02/18 01:31) Past Medical History - General Information source: Patient, Relative - Social History Smoking Status: Never Smoker Frequency of alcohol use: None Drug Abuse: None Lives with: Family Family History: DM, Hypertension, Other - cancer. denies: Reviewed & Not Pert inent - Past Medical History Cardiac Medical History: Reports: Hx Coronary Artery Disease, Hx Heart Attack, Hx Hypercholesterolemia, Hx Hypertension Neurological Medical History: Reports: Hx Migraine Endocrine Medical History: Reports: Hx Diabetes Mellitus Type 2, Hx Hypothyroidism Renal/ Medical History: Denies: Hx Peritoneal Dialysis GI Medical History: Reports: Hx Diverticulitis Psychiatric Medical History: Denies: Hx Depression Past Surgical History: Reports: Hx Abdominal Surgery - hiatal hernia., Hx Cardiac Catheterization, Hx Cardiac Surgery - packemaker., Hx Cholecystectomy, Hx Coronary Artery Bypass Graft, Hx Open Heart Surgery - valve replacement, pacemaker., Hx Valve Replacement, Other - Multiple colonocopies - Immunizations Immunizations up to date: Yes Hx Diphtheria, Pertussis, Tetanus Vaccination: Yes Hx Pneumococcal Vaccination: 06/05/15 Review of Systems - Review of Systems Constitutional: No symptoms reported EENT: No symptoms reported Cardiovascular: No symptoms reported Respiratory: No symptoms reported Gastrointestinal: See HPI Genitourinary: No symptoms reported Male Genitourinary: No symptoms reported Musculoskeletal: No symptoms reported Skin: No symptoms reported Hematologic/Lymphatic: No symptoms reported Neurological/Psychological: No symptoms reported Physical Exam - Vital signs Vitals: Temp Pulse Resp BP Pulse Ox 97.9 F 60 20 150/59 H 97 09/15/18 02:40 09/15/18 02:40 09/15/18 02:40 09/15/18 02:40 09/15/18 02:40 - Notes Notes: GENERAL: Alert, interacts well. No acute distress. HEAD: Normocephalic, atraumatic. EYES: Pupils equal, round, and reactive to light. Extraocular movements intact. ENT: Oral mucosa moist, tongue midline. Oropharynx unremarkable. Airway patent. Nares patent, no nasal septal hematoma, TM's intact. NECK: Full range of motion. Supple. Trachea midline. LUNGS: Clear to auscultation bilaterally, no wheezes, rales, or rhonchi. No respiratory distress. HEART: Regular rate and rhythm. No murmur ABDOMEN: Soft, non-tender. No guarding or rigidity. Non-distended. Bowel sounds present in all 4 quadrants. RECTAL: No current heavy hemorrhage noted, no hemorrhoid noted, stool obtained does show mixed brown and bright red blood. No tenderness noted. Unremarkable otherwise. GENITOURINARY: No swelling, tenderness, or concerning findings EXTREMITIES: Moves all 4 extremities spontaneously. No edema, normal radial and dorsalis pedis pulses bilaterally. No cyanosis. BACK: no cervical, thoracic, lumbar midline tenderness. No saddle anesthesia, normal distal neurovascular exam. NEUROLOGICAL: Alert and oriented x3. Normal speech. cranial nerves II through XII grossly intact. PSYCH: Normal affect, normal mood. SKIN: Warm, dry, normal turgor. No rashes or lesions noted. Course - Re-evaluation Re-evalutation: Based on patient's nontender abdomen, lack of abdominal pain, bright red blood per rectum, I suspect this is a diverticular bleed. Patient is not hypotensive or tachycardic. Patient had a bowel movement, greater than 250 cc by estimate, almost pure blood. He has positive blood on evaluation before this. Hemoglobin slightly down trended from 11.1-10.4 previously. Type and screen performed, transfusion of blood products ordered because of current bleeding. Remaining workup without acute finding. Patient had another somewhat large bloody bowel movement. He is still asymptomatic however, vital signs are still unremarkable. He still has a nontender abdomen. Discussed with family and patient, will discuss with hospitalist for admission, will discuss with surgeon first to make sure we have colonoscopy available because of his lower GI bleed. 09/15/18 04:[address] Carey. Surgery will be available/involved for colonoscopy due to patient suspected diverticular bleed. Spoke with Dr. Roblero, internal medicine, patient admitted to the ICU. - Vital Signs Vital signs: Temp Pulse Resp BP Pulse Ox 98.4 F 59 L 11 L 165/79 H 99 09/15/18 06:42 09/15/18 07:44 09/15/18 07:44 09/15/18 07:44 09/15/18 07:44 - Laboratory Result Diagrams: 09/15/18 03:36 09/15/18 03:36 Laboratory results interpreted by me: 09/15/18 09/15/18 09/15/18 03:36 03:36 03:36 RBC 3.86 L Hgb 10.4 L Hct 31.4 L MCH 26.9 L RDW 20.9 H Chloride 108 H Anion Gap 3 L BUN 33 H Creatinine 1.70 H Est GFR ( Amer) 47 L Est GFR (Non-Af Amer) 39 L Glucose 138 H ALT 18 L Crossmatch See Detail Critical Care Note - Critical Care Note Total time excluding time spent on procedures (mins): 35 - Lower GI bleed, bleeding requiring transfusion Comments: Please allow 35 minutes critical care time for evaluation and management of patient with lower GI bleed requiring multiple re-evaluations, blood transfusion, time spent interpreting data, time spent discussing details with family, time spent discussing with surgeon investigation manager, time spent with discussion and admission to the ICU. Discharge - Discharge Clinical Impression: Acute lower GI bleeding Condition: Fair Disposition: ADMITTED INPATIENT Admitting Provider: Osbaldo (Hospitalist) Unit Admitted: ICU
[2018-09-15] MEDS ORDERED: NORMAL SALINE 250 ML IV PRN ×6 (03:24→08:44)
[2018-09-15 03:51] LABS: ABSOLUTE BASOPHILS # (AUTO) 0.1 10^3/uL (0.0-0.2); ABSOLUTE EOSINOPHILS # (AUTO) 0.2 10^3/uL (0.0-0.6); ABSOLUTE LYMPHOCYTES (AUTO) 1.5 10^3/uL (0.5-4.7); ABSOLUTE MONOCYTES (AUTO) 0.5 10^3/uL (0.1-1.4); ABSOLUTE NEUT (AUTO) 5.7 10^3/uL (1.7-8.2); BASOPHILS % (AUTO) 1.2 % (0-2); EOSINOPHILS % (AUTO) 1.9 % (0-6); HEMATOCRIT 31.4 % (37.9-51.0); HEMOGLOBIN 10.4 g/dL (13.5-17.0); LYMPHOCYTES % (AUTO) 19.1 % (13-45); MEAN CORPUSCULAR HEMOGLOBIN 26.9 pg (27.0-33.4); MEAN CORPUSCULAR HGB CONC 33.1 g/dL (32.0-36.0); MEAN CORPUSCULAR VOLUME 81 fl (80-97); MONOCYTES % (AUTO) 6.6 % (3-13); PLATELET COUNT 212 10^3/uL (150-450); RED BLOOD COUNT 3.86 10^6/uL (4.35-5.55); RED CELL DISTRIBUTION WIDTH 20.9 % (11.5-14.0); SEGMENTED NEUTROPHILS % (AUTO) 71.2 % (42-78); TOTAL CELLS COUNTED % (AUTO) 100 %
[2018-09-15 03:56] LABS: INTERNATIONAL RATION (INR) 0.99; PROTHROMBIN TIME 13.6 SEC (11.4-15.4)
[2018-09-15 03:57] LABS: PARTIAL THROMBOPLASTIN TIME 29.2 SEC (23.5-35.8)
[2018-09-15 04:03] LABS: ALANINE AMINOTRANSFERASE 18 U/L (21-72); ALBUMIN 3.6 g/dL (3.5-5.0); ALKALINE PHOSPHATASE 64 U/L (38-126); ASPARTATE AMINO TRANSFERASE 22 U/L (17-59); BILIRUBIN,DIRECT 0.3 mg/dL (0.0-0.4); BILIRUBIN,TOTAL 0.5 mg/dL (0.2-1.3); BLOOD UREA NITROGEN 33 mg/dL (7-20); CALCIUM 9.3 mg/dL (8.4-10.2); CARBON DIOXIDE 28 mmol/L (22-30); CHLORIDE 108 mmol/L (98-107); GLUCOSE 138 mg/dL (75-110); POTASSIUM 4.9 mmol/L (3.6-5.0); TOTAL PROTEIN 6.9 g/dL (6.3-8.2)
[2018-09-15 04:08] LABS: SODIUM 138.8 mmol/L (137-145)
[2018-09-15 04:11] LABS: ANION GAP 3 (5-19)
[2018-09-15] MEDS ORDERED: IPRATROPIUM/ALBUTEROL 0.5-2.5 MG/3 ML AMPUL NEB PRN (04:44)
--- NOTE | 2018-09-15 06:08 | PDOC H&P ---
History of Present Illness Admission Date/PCP: 09/15/18 04:48 GABINO PEREIRA MD Patient complains of: Bright red blood per rectum History of Present Illness: LILIA FANG is a 83 year old male with a past medical history of coronary artery disease, valve replacement x2, permanent pacemaker, diabetes type 2, CKD 3, osteoarthritis, hypertension and diverticulosis. Patient presents 2 hours after the onset of bright red blood per rectum prompting evaluation emergency room where he another 2 bright red bloody bowel movements of increasing volume. Patient admits recent constipation, denies new medication, abdominal pain or previous episode. He is ordered 2 units of packed red blood cells, surgical consult and referred to the hospitalist for admission Past Medical History Cardiac Medical History: Reports: Coronary Artery Disease, Myocardial Infarction, Hyperlipidema, Hypertension Neurological Medical History: Reports: Migraine Endocrine Medical History: Reports: Diabetes Mellitus Type 2, Hypothyroidism GI Medical History: Reports: Diverticulitis Psychiatric Medical History: Denies: Depression Hematology: Reports: Anemia Past Surgical History Past Surgical History: Reports: Cardiac Catheterization, Cholecystectomy, Coronary Artery Bypass Graft, Valve Replacement, Other - Multiple colonocopies Social History Information Source: Patient Lives with: Family Smoking Status: Unknown if Ever Smoked Frequency of Alcohol Use: None Hx Recreational Drug Use: No Drugs: None Hx Prescription Drug Abuse: No - Advance Directive Resuscitation Status: Full Code Family History Family History: DM, Hypertension, Other - cancer. denies: Reviewed & Not Pertinent Parental Family History Reviewed: Yes Children Family History Reviewed: Yes Sibling(s) Family History Reviewed.: Yes Medication/Allergy Home Medications: Clopidogrel Bisulfate [Plavix 75 mg Tablet] 75 mg PO DAILY 04/05/17 Cyanocobalamin (Vitamin B-12) [Vitamin B-12] 1,000 mcg PO DAILY 04/05/17 Fenofibrate Nanocrystallized [Tricor 48 mg Tablet] 54 mg PO QHS MDD note dose 04/05/17 Folic Acid [Folvite 1 mg Tablet] 1 mg PO DAILY 04/05/17 Isosorbide Mononitrate [Isosorbide Mononitrate ER] 15 mg PO QAM 04/05/17 Levothyroxine Sodium [Synthroid 0.05 mg Tablet] 0.05 mg PO Q6AM 04/05/17 Loratadine [Claritin] 10 mg PO DAILY 04/05/17 Metoprolol Tartrate [Lopressor 25 mg Tablet] 12.5 mg PO Q12 04/05/17 Omeprazole 40 mg PO DAILY 04/05/17 Tramadol HCl/Acetaminophen [Ultracet 37.5 mg/325 mg Tablet] 1 tab PO Q12HP PRN 04/05/17 Prednisone 5 mg PO DAILY 04/06/17 Atorvastatin Calcium [Lipitor 80 mg Tablet] 80 mg PO QHS 08/02/18 Furosemide [Lasix 20 mg Tablet] 20 mg PO 08/02/18 Gabapentin [Neurontin 300 mg Capsule] 600 mg PO Q8 08/02/18 Acetaminophen [Tylenol 325 mg Tablet] 650 mg PO Q4HP PRN tablet 08/03/18 Aspirin [Ecotrin 81 mg EC Tablet] 162 mg PO DAILY tabec 08/03/18 Insulin Glargine,Hum.rec.anlog [Lantus Insulin 100 Unit/mL] 10 unit SUBCUT DAILY #1 insuln.pen 08/03/18 Lansoprazole [Prevacid 30 mg Odt Tablet] 30 mg PO BID@0600,1700 tab.rap.dr 08/03/18 Leflunomide [Arava 20 mg Tablet] 10 mg PO DAILY tablet 08/03/18 Nitroglycerin [Nitrostat 0.4 mg (1/150 Gr) Tabs 25/Bottle] 1 tab SL Q5MP PRN bottle 08/03/18 Pen Needle, Diabetic [Insulin Pen Needle] 1 each MC DAILY #30 dis.needle 08/03/18 Allergies/Adverse Reactions: No Known Allergies Allergy (Verified 08/02/18 01:31) Review of Systems Constitutional: ABSENT: chills, fever(s), headache(s), weight gain, weight loss Eyes: ABSENT: visual disturbances Ears: ABSENT: hearing changes Cardiovascular: ABSENT: chest pain, dyspnea on exertion, edema, orthropnea, palpitations Respiratory: ABSENT: cough, hemoptysis Gastrointestinal: ABSENT: abdominal pain, constipation, diarrhea, hematemesis, hematochezia, nausea, vomiting Genitourinary: ABSENT: dysuria, hematuria Musculoskeletal: ABSENT: joint swelling Integumentary: ABSENT: rash, wounds Neurological: ABSENT: abnormal gait, abnormal speech, confusion, dizziness, focal weakness, syncope Psychiatric: ABSENT: anxiety, depression, homidical ideation, suicidal ideation Endocrine: ABSENT: cold intolerance, heat intolerance, polydipsia, polyuria Hematologic/Lymphatic: ABSENT: easy bleeding, easy bruising Physical Exam Vital Signs: Temp Pulse Resp BP Pulse Ox 97.9 F 60 13 151/70 H 98 09/15/18 05:16 09/15/18 02:40 09/15/18 05:16 09/15/18 05:16 09/15/18 05:16 Intake & Output 09/13/18 09/14/18 09/15/18 11:59 11:59 11:59 Intake Total 0 Balance 0 Weight 70.2 kg General appearance: PRESENT: no acute distress, well-developed, well-nourished Head exam: PRESENT: atraumatic, normocephalic Eye exam: PRESENT: conjunctiva pink, EOMI, PERRLA. ABSENT: scleral icterus Ear exam: PRESENT: normal external ear exam Mouth exam: PRESENT: moist, tongue midline Neck exam: ABSENT: carotid bruit, JVD, lymphadenopathy, thyromegaly Respiratory exam: PRESENT: clear to auscultation hunter. ABSENT: rales, rhonchi, wheezes Cardiovascular exam: PRESENT: RRR. ABSENT: diastolic murmur, rubs, systolic murmur Pulses: PRESENT: normal dorsalis pedis pul Vascular exam: PRESENT: normal capillary refill GI/Abdominal exam: PRESENT: normal bowel sounds, soft. ABSENT: distended, guarding, mass, organolmegaly, rebound, tenderness Rectal exam: PRESENT: deferred Extremities exam: PRESENT: full ROM. ABSENT: calf tenderness, clubbing, pedal edema Neurological exam: PRESENT: alert, awake, oriented to person, oriented to place, oriented to time, oriented to situation, CN II-XII grossly intact. ABSENT: motor sensory deficit Psychiatric exam: PRESENT: appropriate affect, normal mood. ABSENT: homicidal ideation, suicidal ideation Skin exam: PRESENT: dry, intact, warm. ABSENT: cyanosis, rash Results Laboratory Results: 09/15/18 03:36 09/15/18 03:36 09/15/18 09/15/18 09/15/18 03:36 03:36 03:36 WBC 8.0 RBC 3.86 L Hgb 10.4 L Hct 31.4 L MCV 81 MCH 26.9 L MCHC 33.1 RDW 20.9 H Plt Count 212 Seg Neutrophils % 71.2 Lymphocytes % 19.1 Monocytes % 6.6 Eosinophils % 1.9 Basophils % 1.2 Absolute Neutrophils 5.7 Absolute Lymphocytes 1.5 Absolute Monocytes 0.5 Absolute Eosinophils 0.2 Absolute Basophils 0.1 Sodium 138.8 Potassium 4.9 Chloride 108 H Carbon Dioxide 28 Anion Gap 3 L BUN 33 H Creatinine 1.70 H Est GFR ( Amer) 47 L Est GFR (Non-Af Amer) 39 L Glucose 138 H Calcium 9.3 Total Bilirubin 0.5 AST 22 ALT 18 L Alkaline Phosphatase 64 Total Protein 6.9 Albumin 3.6 Blood Type A POSITIVE Antibody Screen NEGATIVE Assessment and Plan - Diagnosis (1) Acute lower GI bleeding Is this a current diagnosis for this admission?: Yes Plan: Likely diverticular bleed, ICU admission, transfuse 2 units of packed red blood cells, follow-up CBC and surgical consult (2) Diabetes Is this a current diagnosis for this admission?: Yes Plan: Humalog sliding scale every 6 hours as needed (3) Anemia Is this a current diagnosis for this admission?: Yes Plan: Blood loss anemia, follow-up posttransfusion CBC - Time Time Spent with patient: 35 or more minutes - Inpatient Certification Medical Necessity: Need Close Monitoring Due to Risk of Patient Decompensation
--- NOTE | 2018-09-15 09:03 | PDOC CONSULTATION ---
Consultation Consult Date: 09/15/18 Attending physician:: DINH HOGAN Consult reason:: Gi Bleeding History of Present Illness Admission Date/PCP: 09/15/18 04:48 GABINO PEREIRA MD History of Present Illness: LILIA FANG is a 83 year old male Patient is an 83-year-old male that comes to the emergency department for chief complaint of bright red blood per rectum. He noticed at 1:30 AM blood trickling down his leg, he has had for bloody bowel movement since then, mainly blood with a little bit of mixed in stool. He is on Plavix. He had a colonoscopy within the past year that showed diverticulosis but no other concerning findings. He denies dizziness, passing out, abdominal pain, nausea, vomiting. He denies history of hemorrhoids. Past medical history includes heart valve replacement (cow valve), AICD, insulin-dependent diabetes, GERD, hypothyroidism. Currently he has no c/o abd pain continiures to pass blood per rectum Past Medical History Cardiac Medical History: Reports: Coronary Artery Disease, Myocardial Infarction, Hyperlipidema, Hypertension Neurological Medical History: Reports: Migraine Endocrine Medical History: Reports: Diabetes Mellitus Type 2, Hypothyroidism GI Medical History: Reports: Diverticulitis Psychiatric Medical History: Denies: Depression Hematology: Reports: Anemia Past Surgical History Past Surgical History: Reports: Cardiac Catheterization, Cholecystectomy, Coronary Artery Bypass Graft, Valve Replacement, Other - Multiple colonocopies Social History Lives with: Family Smoking Status: Never Smoker Last Time Smoked: 50 years ago Frequency of Alcohol Use: None Hx Recreational Drug Use: No Drugs: None Hx Prescription Drug Abuse: No - Advance Directive Resuscitation Status: Full Code Family History Family History: DM, Hypertension, Other - cancer. denies: Reviewed & Not Pertinent Parental Family History Reviewed: No Children Family History Reviewed: NA Sibling(s) Family History Reviewed.: NA Medication/Allergy Allergies/Adverse Reactions: No Known Allergies Allergy (Verified 08/02/18 01:31) Review of Systems Constitutional: PRESENT: fatigue, weakness Eyes: PRESENT: other - no change in vision Ears: PRESENT: other - no hearing changers Nose, Mouth, and Throat: PRESENT: other - no sore throat Breasts: PRESENT: other - no c/o breast masses Cardiovascular: PRESENT: other - no current c/o chest pain has "two valves and a pacemaker" Respiratory: PRESENT: other - no sob Gastrointestinal: PRESENT: other - no abdominal pain Musculoskeletal: PRESENT: other - no joint swelling or pain Integumentary: PRESENT: other - no rashes Neurological: PRESENT: other - other than fatigue, no focal weakness Endocrine: PRESENT: other - no cold or heat intolerance Physical Exam Vital Signs: Temp Pulse Resp BP Pulse Ox 98.3 F 60 10 L 165/79 H 97 09/15/18 08:00 09/15/18 08:00 09/15/18 08:00 09/15/18 08:00 09/15/18 08:00 Intake & Output 09/14/18 09/15/18 09/16/18 06:59 06:59 06:59 Intake Total 0 300 Output Total 500 Balance 0 -200 Weight 69 kg General appearance: PRESENT: no acute distress Head exam: PRESENT: normocephalic Eye exam: PRESENT: EOMI Mouth exam: PRESENT: moist Neck exam: PRESENT: full ROM Respiratory exam: PRESENT: clear to auscultation hunter Cardiovascular exam: PRESENT: RRR, systolic murmur Pulses: PRESENT: normal carotid pulses, normal radial pulses, normal femoral pulses Vascular exam: PRESENT: pallor GI/Abdominal exam: PRESENT: hyperactive bowel sounds, soft Rectal exam: PRESENT: deferred, bloody stool Extremities exam: PRESENT: full ROM Musculoskeletal exam: PRESENT: full ROM Neurological exam: PRESENT: alert, awake, oriented to person, oriented to place, oriented to time, oriented to situation Psychiatric exam: PRESENT: anxious Skin exam: PRESENT: dry Results Laboratory Results: 09/15/18 03:36 09/15/18 03:36 09/15/18 09/15/18 09/15/18 03:36 03:36 03:36 WBC 8.0 RBC 3.86 L Hgb 10.4 L Hct 31.4 L MCV 81 MCH 26.9 L MCHC 33.1 RDW 20.9 H Plt Count 212 Seg Neutrophils % 71.2 Lymphocytes % 19.1 Monocytes % 6.6 Eosinophils % 1.9 Basophils % 1.2 Absolute Neutrophils 5.7 Absolute Lymphocytes 1.5 Absolute Monocytes 0.5 Absolute Eosinophils 0.2 Absolute Basophils 0.1 Sodium 138.8 Potassium 4.9 Chloride 108 H Carbon Dioxide 28 Anion Gap 3 L BUN 33 H Creatinine 1.70 H Est GFR ( Amer) 47 L Est GFR (Non-Af Amer) 39 L Glucose 138 H Calcium 9.3 Total Bilirubin 0.5 AST 22 ALT 18 L Alkaline Phosphatase 64 Total Protein 6.9 Albumin 3.6 Blood Type A POSITIVE Antibody Screen NEGATIVE Assessment & Plan - Plan Summary Plan Summary: pt with previous gi bleed, worked up iw upper and lower endoscopy only diverticulosis noted pt does have a repeat upper endosocpy scheduled next week for "some finding on upper endosocpy last yr" (no report available) pt on asa and plavix for his cardiac valves ciurrently passing non clotted blood per rectum without clots recommend- type and cross and txn to keep hct above 30% q 4 hrs cbc stat bleeding scan platlet txn- pt has been on plavix may need interventional radiology for embolization vs surgery for colectomy if bleeding does not subside. surgery will follow.
[2018-09-15 09:43] LABS: ABSOLUTE BASOPHILS # (AUTO) 0.1 10^3/uL (0.0-0.2); ABSOLUTE EOSINOPHILS # (AUTO) 0.3 10^3/uL (0.0-0.6); ABSOLUTE LYMPHOCYTES (AUTO) 2.3 10^3/uL (0.5-4.7); ABSOLUTE MONOCYTES (AUTO) 0.7 10^3/uL (0.1-1.4); ABSOLUTE NEUT (AUTO) 6.2 10^3/uL (1.7-8.2); BASOPHILS % (AUTO) 0.8 % (0-2); HEMATOCRIT 34.6 % (37.9-51.0); HEMOGLOBIN 11.4 g/dL (13.5-17.0); LYMPHOCYTES % (AUTO) 23.6 % (13-45); MEAN CORPUSCULAR VOLUME 82 fl (80-97); MONOCYTES % (AUTO) 7.2 % (3-13); PLATELET COUNT 197 10^3/uL (150-450); RED BLOOD COUNT 4.23 10^6/uL (4.35-5.55); RED CELL DISTRIBUTION WIDTH 20.3 % (11.5-14.0); SEGMENTED NEUTROPHILS % (AUTO) 65.4 % (42-78); TOTAL CELLS COUNTED % (AUTO) 100 %; WHITE BLOOD COUNT 9.5 10^3/uL (4.0-10.5)
[2018-09-15] MEDS: HEPARIN SOD (PORCINE) 5,000 UNIT/ML 1 ML SYRINGE SUBCUT SCH ×2 (09:45→13:34)
[2018-09-15 09:53] LABS: ANION GAP 6 (5-19); BLOOD UREA NITROGEN 31 mg/dL (7-20); CALCIUM 9.5 mg/dL (8.4-10.2); CARBON DIOXIDE 23 mmol/L (22-30); CHLORIDE 111 mmol/L (98-107); GLUCOSE 97 mg/dL (75-110); POTASSIUM 4.7 mmol/L (3.6-5.0); SODIUM 140.3 mmol/L (137-145)
--- NOTE | 2018-09-15 12:12 | RADIOLOGY REPORT (SQ) ---
EXAM DESCRIPTION: NM GI BLEED SCAN COMPLETED DATE/TIME: 09/15/2018 11:53 am REASON FOR STUDY: per surgery for active GI bleed COMPARISON: None. RADIONUCLIDE AND DOSE: 29.1 millicuries Technetium-labeled red blood cells. The route of agent administration: Intravenous. TECHNIQUE: Serial arterial-phase images acquired for 80 seconds immediately following injection of r adionuclide. Additional 60 images acquired at 60 seconds per image. LIMITATIONS: None. FINDINGS: Serial flow images reveal abnormal radiopharmaceutical localization in the left lower quad rant. This initially appears in the region of the sigmoid colon with subsequent spreading throughout the regional bowel. Consistent with active GI bleeding. IMPRESSION: Positive nuclear medicine bleeding scan. Active focus of GI bleeding appears to be in t he distal colon. Preliminary results called to nursing in the ICU shortly after the study was performed and interprete d at approximately 1205 hours. TECHNICAL DOCUMENTATION: JOB ID: [id number] [employer]- All Rights Reserved Reading location - IP/workstation name: [email or web address]
[2018-09-15] MEDS ORDERED: HYDRALAZINE HCL INJ/PF 20 MG/1 ML SDV IV PRN (13:27)
[2018-09-15 14:30] LABS: INTERNATIONAL RATION (INR) 1.04; PROTHROMBIN TIME 14.1 SEC (11.4-15.4)
[2018-09-15 14:31] LABS: MEAN CORPUSCULAR HEMOGLOBIN 26.6 pg (27.0-33.4); MEAN CORPUSCULAR HGB CONC 32.3 g/dL (32.0-36.0); MEAN CORPUSCULAR VOLUME 82 fl (80-97); PARTIAL THROMBOPLASTIN TIME 27.6 SEC (23.5-35.8); PLATELET COUNT 205 10^3/uL (150-450); RED BLOOD COUNT 4.14 10^6/uL (4.35-5.55); RED CELL DISTRIBUTION WIDTH 19.6 % (11.5-14.0); WHITE BLOOD COUNT 12.7 10^3/uL (4.0-10.5)
[2018-09-15] MEDS ORDERED: ONDANSETRON HCL INJ/PF 4 MG/2 ML SDV ONE (15:59)
[2018-09-15] MEDS ORDERED: DIPHENHYDRAMINE HCL 50 MG/ML VIAL ONE (15:59)
[2018-09-15] MEDS ORDERED: FENTANYL CITRATE INJ/PF 100 MCG/2 ML AMPUL ONE (15:59)
[2018-09-15] MEDS ORDERED: GLUCAGON,HUMAN RECOMB 1 MG INJ ONE (16:00)
[2018-09-15] MEDS ORDERED: NALOXONE HCL INJ/PF 0.4 MG/1 ML SDV ONE (16:00)
[2018-09-15] MEDS ORDERED: FLUMAZENIL INJ 0.5 MG/5 ML VIAL ONE (16:00)
[2018-09-15] MEDS ORDERED: EPINEPHRINE INJ 1 MG/10 ML DISP.SYRIN ONE (16:00)
[2018-09-15] MEDS: MIDAZOLAM 2 MG/2 ML INJ ONE ×3 (16:48→17:25)
[2018-09-15 16:57] LABS: ABSOLUTE LYMPHOCYTES# (MANUAL) 2.4 10^3/uL (0.5-4.7); ABSOLUTE MONOCYTES # (MANUAL) 0.4 10^3/uL (0.1-1.4); ABSOLUTE NEUTROPHILS# (MANUAL) 9.1 10^3/uL (1.7-8.2); BAND NEUTROPHILS % (MANUAL) 1 % (3-5); BASOPHILS % (MANUAL) 2 % (0-2); EOSINOPHILS % (MANUAL) 4 % (0-6); LYMPHOCYTES % (MANUAL) 19 % (13-45); METAMYELOCYTES % (MANUAL) 1 % (0); MONOCYTES % (MANUAL) 3 % (3-13); SEGMENTED NEUTROPHILS % (MAN) 70 % (42-78); TOTAL CELLS COUNTED 100
[2018-09-15 16:59] LABS: ANISOCYTOSIS 2+; OVALOCYTES 1+; PLATELET COMMENT ADEQUATE; POIKILOCYTOSIS 1+; SCHISTOCYTES SLIGHT; TOXIC GRANULATION 1+
--- NOTE | 2018-09-15 18:42 | PDOC TRANSFER SUMMARY ---
General Admission Date/PCP: 09/15/18 04:48 GABINO PEREIRA MD Resuscitation Status: Full Code - Transfer Diagnosis (1) Acute lower GI bleeding Is this a current diagnosis for this admission?: Yes (2) Diverticular hemorrhage Is this a current diagnosis for this admission?: Yes - Transfer Medications Home Medications: Atorvastatin Calcium [Lipitor 80 mg Tablet] 80 mg PO QHS 09/15/18 Clopidogrel Bisulfate [Plavix 75 mg Tablet] 75 mg PO DAILY 09/15/18 Fenofibrate 54 mg PO DAILY 09/15/18 Folic Acid [Folvite 1 mg Tablet] 1 mg PO DAILY 09/15/18 Furosemide [Lasix 20 mg Tablet] 20 mg PO MOWEFR@1000 09/15/18 Insulin Degludec [Tresiba] 20 unit SQ QHS 09/15/18 Isosorbide Mononitrate [Imdur 30 mg Tablet.er] 15 mg PO DAILY 09/15/18 Levothyroxine Sodium 50 mcg PO Q6AM 09/15/18 Losartan Potassium [Cozaar 100 mg Tablet] 100 mg PO DAILY 09/15/18 Metoprolol Tartrate [Lopressor 25 mg Tablet] 12.5 mg PO Q12 09/15/18 Omeprazole 40 mg PO DAILY 09/15/18 Prednisone [Deltasone 5 mg Tablet] 5 mg PO DAILY 09/15/18 Tramadol HCl/Acetaminophen [Tramadol-Acetaminophn 37.5-325] 1 each PO BIDP PRN 09/15/18 Transfer Medications: Current Medications Albuterol/Ipratropium (Duoneb 3 Ml Ampul) 3 ml NEB [id number] PRN PRN Reason: SHORTNESS OF BREATH Stop: 10/15/18 04:43 Heparin Sodium (Porcine) (Heparin Inj 5,000 Units/Ml 1 Ml Syringe) 5,000 unit SUBCUT Q8 YOSELYN Stop: 10/15/18 05:59 Last Admin: 09/15/18 13:34 Dose: Not Given Documented by: Hydralazine HCl (Apresoline Inj/Pf 20 Mg/1 Ml Sdv) 10 mg IV Q6HP PRN PRN Reason: for SBP>160 or DBP>100 Stop: 10/15/18 13:26 Last Admin: 09/15/18 14:20 Dose: 10 mg Documented by: Sodium Chloride (Nacl 0.9% 250 Ml Iv Soln) 250 mls @ 30 mls/hr IV .DURING TRANSFUSION PRN PRN Reason: THIS MED IS NOT "PRN" Stop: 09/16/18 08:43 Sodium Chloride (Nacl 0.9% 250 Ml Iv Soln) 250 mls @ 0 mls/hr IV CONTINUOUS PRN PRN Reason: AFTER EACH UNIT Stop: 09/16/18 08:43 - Allergies Allergies/Adverse Reactions: No Known Allergies Allergy (Verified 08/02/18 01:31) Hospital Course Hospital Course: This is an 83 yr old male with a PMH of aortic and mitral valve replacements and prior pacemaker placement who was admitted for acute GI bleed. He did have grossly bloody stools in the ICU. He received 2 u of pRBCs so far, a unit of FFP and platelet transfusion as he was on Plavix as well. Surgery did colonoscopy which showed active diverticular bleed. He was deemed high surgical risk and surgery has made arrangements for him to get possible embolization by IR in [facility]. Transfer was accepted by Dr. Cordova. Physical Exam Vital Signs: Temp Pulse Resp BP Pulse Ox 97.7 F 63 14 151/60 H 100 09/15/18 16:26 09/15/18 18:18 09/15/18 18:18 09/15/18 18:18 09/15/18 18:18 Intake & Output 09/14/18 09/15/18 09/16/18 06:59 06:59 06:59 Intake Total 0 2540 Output Total 3000 Balance 0 -460 Weight 152 lb 1.903 oz General appearance: PRESENT: no acute distress, well-developed, well-nourished Head exam: PRESENT: atraumatic, normocephalic Eye exam: PRESENT: conjunctiva pink, EOMI, PERRLA. ABSENT: scleral icterus Ear exam: PRESENT: normal external ear exam Mouth exam: PRESENT: moist, tongue midline Neck exam: ABSENT: carotid bruit, JVD, lymphadenopathy, thyromegaly Respiratory exam: PRESENT: clear to auscultation hunter. ABSENT: rales, rhonchi, wheezes Cardiovascular exam: PRESENT: RRR. ABSENT: diastolic murmur, rubs, systolic murmur Pulses: PRESENT: normal dorsalis pedis pul GI/Abdominal exam: PRESENT: normal bowel sounds, soft. ABSENT: distended, guarding, mass, organolmegaly, rebound, tenderness Rectal exam: PRESENT: deferred Neurological exam: PRESENT: alert, awake, oriented to person, oriented to place, oriented to time, oriented to situation, CN II-XII grossly intact. ABSENT: motor sensory deficit Results Laboratory Results: 09/15/18 14:09 09/15/18 09:25 09/15/18 09/15/18 09/15/18 03:36 03:36 03:36 WBC 8.0 RBC 3.86 L Hgb 10.4 L Hct 31.4 L MCV 81 MCH 26.9 L MCHC 33.1 RDW 20.9 H Plt Count 212 Seg Neutrophils % 71.2 Lymphocytes % 19.1 Monocytes % 6.6 Eosinophils % 1.9 Basophils % 1.2 Absolute Neutrophils 5.7 Absolute Lymphocytes 1.5 Absolute Monocytes 0.5 Absolute Eosinophils 0.2 Absolute Basophils 0.1 Sodium 138.8 Potassium 4.9 Chloride 108 H Carbon Dioxide 28 Anion Gap 3 L BUN 33 H Creatinine 1.70 H Est GFR ( Amer) 47 L Est GFR (Non-Af Amer) 39 L Glucose 138 H Calcium 9.3 Total Bilirubin 0.5 AST 22 ALT 18 L Alkaline Phosphatase 64 Total Protein 6.9 Albumin 3.6 Blood Type A POSITIVE Antibody Screen NEGATIVE 09/15/18 09/15/18 09/15/18 09:25 09:25 14:09 WBC 9.5 12.7 H RBC 4.23 L 4.14 L Hgb 11.4 L 11.0 L Hct 34.6 L 34.0 L MCV 82 82 MCH 27.0 26.6 L MCHC 33.0 32.3 RDW 20.3 H 19.6 H Plt Count 197 205 Seg Neutrophils % 65.4 Not Reportable Lymphocytes % 23.6 Not Reportable Monocytes % 7.2 Not Reportable Eosinophils % 3.0 Not Reportable Basophils % 0.8 Not Reportable Absolute Neutrophils 6.2 Not Reportable Absolute Lymphocytes 2.3 Not Reportable Absolute Monocytes 0.7 Not Reportable Absolute Eosinophils 0.3 Not Reportable Absolute Basophils 0.1 Not Reportable Sodium 140.3 Potassium 4.7 Chloride 111 H Carbon Dioxide 23 Anion Gap 6 BUN 31 H Creatinine 1.61 H Est GFR ( Amer) 50 L Est GFR (Non-Af Amer) 41 L Glucose 97 Calcium 9.5 Total Bilirubin AST ALT Alkaline Phosphatase Total Protein Albumin Blood Type Antibody Screen Impressions: GI Bleed Scan Nuclear Medicine 09/15/18 00:00 IMPRESSION: Positive nuclear medicine bleeding scan. Active focus of GI bleeding appears to be in the distal colon. Preliminary results called to nursing in the ICU shortly after the study was performed and interpreted at approximately 1205 hours.
--- NOTE | 2018-09-15 18:55 | Operative Report ---
Nonrecallable Operative Report DATE OF SURGERY: 09/15/18 PREOPERATIVE DIAGNOSIS: diverticular bleed POSTOPERATIVE DIAGNOSIS: diverticular bleed OPERATION: colonoscopy and control of diverticular bleed SURGEON: XIAO HOPE ANESTHESIA: Moderate Sedation TISSUE REMOVED OR ALTERED: none COMPLICATIONS: none ESTIMATED BLOOD LOSS: 0 INTRAOPERATIVE FINDINGS: see dictation PROCEDURE: see dictation
--- NOTE | 2018-09-15 19:35 | OPERATIVE REPORT E ---
Operative Report NAME: LILIA FANG : 1935 AGE: 83Y DATE OF SURGERY: 09/15/2018 ROOM: 611 PREOPERATIVE DIAGNOSIS: DIVERTICULAR BLEEDING. POSTOPERATIVE DIAGNOSIS: DIVERTICULAR BLEEDING. OPERATIVE PROCEDURE: Colonoscopy and control of diverticular bleed. SURGEON: XIAO HOPE M.D. INDICATIONS FOR PROCEDURE: This is an 83-year-old male who presented to [facility] with complaints of acute GI bleeding. The patient has a past medical history of aortic and mitral valve replacements and a prior pacemaker. He was taking Plavix prior this his presentation. He was admitted to the ICU for the diverticular bleeding and received 2 units of packed red blood cells and 1 unit of fresh frozen plasma. Surgical consultation was then obtained and a radioisotope bleeding scan was done. The results of that showed probable diverticular bleeding in the sigmoid colon. Throughout the day he received another 2 units of packed red blood cells and continued to pass bloody stools and, therefore, a colonoscopy was arranged. DETAILS OF PROCEDURE: The patient was in the intensive care unit. Appropriate timeout was obtained. He was placed in the left lateral decubitus position and given IV sedation. The Olympus colonoscope was passed into the rectum and initially there was a large amount of clot and blood within the rectum, which after sometime and significant amount of irrigation we finally removed most of it and we were able to traverse the sigmoid colon up the descending colon where we noted blood and stool. We then were able to traverse the splenic flexure through the transverse colon to the hepatic flexure also noting old blood and stool, and then the cecum. We reached the cecum at approximately 120 cm. We identified the ileocecal valve as well as the appendiceal orifice. We irrigated profusely to clear all the old blood from the wall of the mucosa to identify any mucosal abnormalities and there were none. As we traversed back through the transverse colon we continued our irrigation to wash out any old blood stained mucosa. As we traversed back through the descending colon we noted a significant amount of diverticulosis, washed the valladares of the colon to remove any old blood and did not see any bleeding. The proximal sigmoid colon had large tics, numerous, and as we reached 35 cm we noted a diverticulum that was oozing fairly robustly. Using half strength epinephrine we injected the mucosal base around the tic with approximately 2 mL of a half strength epinephrine solution. The robust oozing of the diverticulum slowed significant to a minimal ooze. The rest of the exam showed multiple diverticula in the distal sigmoid colon and then as we traversed the rectum we did not note any other bleeding. The scope was withdrawn. IMPRESSION: Diverticular bleed from the sigmoid colon. PLAN: Current plan is to observe the patient. He will be transferred to [facility] as he is a cardiac patient and should he bleed again we have consulted interventional radiology up at [facility] for a possible procedure should this patient start rebleeding again. DICTATING PHYSICIAN: XIAO HOPE M.D. [id number] PHY#: [id number] ID: [id number] JOB#: [id number] ACCT: [id number] cc:XIAO HOPE M.D. >
[2018-09-15 20:16] VITALS: BP 164/68
== END 2018-09-15 20:28 | disposition short-term general hospital (02) | DRG 378 ==
LOC: ER 02:32 → EH 04:48 → ICU 06:23
PROVIDERS: ADMIT Internal Medicine; ATTEND Internal Medicine
PROC: 30233N1 Transfusion of Nonautologous Red Blood Cells into Peripheral Vein, Percutaneous Approach (ICD-10-PCS; 2018-09-15)
PROC: 30233K1 Transfusion of Nonautologous Frozen Plasma into Peripheral Vein, Percutaneous Approach (ICD-10-PCS; 2018-09-15)
PROC: 30233R1 Transfusion of Nonautologous Platelets into Peripheral Vein, Percutaneous Approach (ICD-10-PCS; 2018-09-15)
PROC: 0W3P8ZZ Control Bleeding in Gastrointestinal Tract, Via Natural or Artificial Opening Endoscopic (ICD-10-PCS; principal; 2018-09-15 16:04)
DX: K57.33 Diverticulitis of large intestine without perforation or abscess with bleeding (principal); D62 Acute posthemorrhagic anemia; E03.9 Hypothyroidism, unspecified; I12.9 Hypertensive chronic kidney disease with stage 1 through stage 4 chronic kidney disease, or unspecified chronic kidney disease; I25.10 Atherosclerotic heart disease of native coronary artery without angina pectoris; E11.22 Type 2 diabetes mellitus with diabetic chronic kidney disease; N18.3 Chronic kidney disease, stage 3 (moderate); E78.5 Hyperlipidemia, unspecified; K21.9 Gastro-esophageal reflux disease without esophagitis; M19.90 Unspecified osteoarthritis, unspecified site; Z95.3 Presence of xenogenic heart valve; Z79.02 Long term (current) use of antithrombotics/antiplatelets; Z79.4 Long term (current) use of insulin; Z82.49 Family history of ischemic heart disease and other diseases of the circulatory system; Z83.3 Family history of diabetes mellitus; Z95.0 Presence of cardiac pacemaker; I25.2 Old myocardial infarction; Z90.49 Acquired absence of other specified parts of digestive tract; Z95.1 Presence of aortocoronary bypass graft; Z79.82 Long term (current) use of aspirin; Z79.899 Other long term (current) drug therapy
CPT/HCPCS: 36415; 36430; 45381; 78278; 80048; 80053; 82962; 85025; 85610; 85730; 86850; 86900; 86901; 86920; 99291; A9560; J0171; J0360; J1200; J1610; J1642; J2250; J2310; J2405; J3010; J3490; P9016; P9017; P9035; Q9969

== ENCOUNTER 2018-11-15 12:38 | Inpatient (IN) | payer MEDICARE, OTHER ==
[2018-11-15 13:26] LABS: ABSOLUTE BASOPHILS # (AUTO) 0.1 10^3/uL (0.0-0.2); ABSOLUTE EOSINOPHILS # (AUTO) 1.2 10^3/uL (0.0-0.6); ABSOLUTE LYMPHOCYTES (AUTO) 1.1 10^3/uL (0.5-4.7); ABSOLUTE MONOCYTES (AUTO) 0.8 10^3/uL (0.1-1.4); ABSOLUTE NEUT (AUTO) 7.2 10^3/uL (1.7-8.2); BASOPHILS % (AUTO) 1.1 % (0-2); EOSINOPHILS % (AUTO) 11.3 % (0-6); HEMATOCRIT 31.8 % (37.9-51.0); HEMOGLOBIN 10.3 g/dL (13.5-17.0); LYMPHOCYTES % (AUTO) 10.7 % (13-45); MEAN CORPUSCULAR HEMOGLOBIN 25.6 pg (27.0-33.4); MEAN CORPUSCULAR HGB CONC 32.4 g/dL (32.0-36.0); MEAN CORPUSCULAR VOLUME 79 fl (80-97); MONOCYTES % (AUTO) 7.8 % (3-13); PLATELET COUNT 565 10^3/uL (150-450); RED BLOOD COUNT 4.02 10^6/uL (4.35-5.55); SEGMENTED NEUTROPHILS % (AUTO) 69.1 % (42-78); TOTAL CELLS COUNTED % (AUTO) 100 %; WHITE BLOOD COUNT 10.5 10^3/uL (4.0-10.5)
[2018-11-15 13:37] LABS: ALANINE AMINOTRANSFERASE 18 U/L (21-72); ALBUMIN 3.3 g/dL (3.5-5.0); ALKALINE PHOSPHATASE 72 U/L (38-126); ANION GAP 7 (5-19); ASPARTATE AMINO TRANSFERASE 31 U/L (17-59); BILIRUBIN,TOTAL 1.3 mg/dL (0.2-1.3); BLOOD UREA NITROGEN 36 mg/dL (7-20); CALCIUM 9.5 mg/dL (8.4-10.2); CARBON DIOXIDE 29 mmol/L (22-30); CHLORIDE 97 mmol/L (98-107); CREATINE KINASE 39 U/L (55-170); GLUCOSE 126 mg/dL (75-110); SODIUM 133.3 mmol/L (137-145); TOTAL PROTEIN 7.1 g/dL (6.3-8.2)
[2018-11-15 14:13] LABS: CREATINE KINASE MB 0.62 ng/mL (<4.55)
[2018-11-15 14:18] LABS: TROPONIN I < 0.012 ng/mL
[2018-11-15] MEDS ORDERED: NORMAL SALINE 1000 ML 1,000 ML IV ONE (15:56)
--- NOTE | 2018-11-15 16:07 | ER Document Report ---
ED Blood Pressure Problem - General Chief Complaint: Low Blood Pressure Stated Complaint: BLOOD PRESSURE ISSUES Time Seen by Provider: 11/15/18 15:56 Primary Care Provider: GABINO PEREIRA MD [Primary Care Provider] - Follow up as needed TRAVEL OUTSIDE OF THE [place] IN LAST 30 DAYS: No - HPI Notes: Patient is a 83-year-old male that presents to the emergency department for chief complaint of generalized fatigue. HPI is provided by patient's family as well as patient. Family states that since returning home from [facility] and after an admission for acute stroke and GI hemorrhage patient has had functional decline. They state he sleeps most of the day. They have a hard time getting him up or active. Patient has not been eating or drinking well. They deny any fever, nausea/vomiting, chest pain, coughing or abdominal pain. Patient does have periods during the day when he was more alert and will get up and ambulate. They do not see any new focal deficits or describe any speech difficulties. Patient states he feels tired but has no other complaints. Past Medical History: Hypertension, stroke Past Surgical History: Reviewed in chart Social History: Lives with family. No alcohol or tobacco use Family History: Reviewed and noncontributory for presenting illness Allergies: Reviewed, see documented allergy list. REVIEW OF SYSTEMS: CONSTITUTIONAL : No fever No chills No diaphoresis recent illness Generalized weakness EENT: No vision changes No congestion No sore throat CARDIOVASCULAR: No chest pain No palpitations RESPIRATORY: No shortness of breath No cough No difficulty breathing GASTROINTESTINAL: No abdominal pain No nausea No vomiting No diarrhea GENITOURINARY: No dysuria No hematuria No difficulty urinating MUSCULOSKELETAL: No back pain No leg pain No arm pain SKIN: No rashes No lesions LYMPHATIC: No swollen, enlarged glands. NEUROLOGICAL: No lightheadedness No headache weakness No paresthesias PSYCHIATRIC: No anxiety No depression PHYSICAL EXAMINATION: Vital signs reviewed, nursing noted reviewed. GENERAL: Somnolent, thin, and in no acute distress. HEAD: Atraumatic, normocephalic. EYES: Eyes appear normal, extraocular movements intact, sclera anicteric, conjunctiva are normal. ENT: nares patent, oropharynx clear without exudates. Dry mucous membranes. NECK: Normal range of motion, supple without lymphadenopathy LUNGS: Breath sounds clear to auscultation bilaterally and equal. No wheezes rales or rhonchi. HEART: Regular rate and rhythm without murmurs ABDOMEN: Soft, nontender, normoactive bowel sounds. No rebound, guarding, or rigidity. No masses appreciated. EXTREMITIES: Nontender, good range of motion, left upper extremity trace edema NEUROLOGICAL: GCS 14. Minimal effort against gravity of left upper extremity. Normal strength in right upper and bilateral lower extremities. Decreased sensation to left upper extremity. Normal sensation to remaining extremities. Mild left facial droop.PSYCH: Normal mood, normal affect. SKIN: Warm, Dry, normal turgor, ecchymosis to left upper extremity - Related Data Allergies/Adverse Reactions: No Known Allergies Allergy (Verified 08/02/18 01:31) Past Medical History - Social History Smoking Status: Unknown if Ever Smoked Chew tobacco use (# tins/day): No Frequency of alcohol use: None Drug Abuse: None Family History: DM, Hypertension, Other - cancer. denies: Reviewed & Not Pertinent Patient has suicidal ideation: No Patient has homicidal ideation: No - Past Medical History Cardiac Medical History: Reports: Hx Coronary Artery Disease, Hx Heart Attack - x3, Hx Hypercholesterolemia, Hx Hypertension Neurological Medical History: Reports: Hx Migraine. Denies: Hx Seizures Endocrine Medical History: Reports: Hx Diabetes Mellitus Type 1, Hx Diabetes Mellitus Type 2, Hx Hypothyroidism Renal/ Medical History: Denies: Hx Peritoneal Dialysis GI Medical History: Reports: Hx Diverticulitis Psychiatric Medical History: Denies: Hx Depression Past Surgical History: Reports: Hx Abdominal Surgery - hiatal hernia., Hx Cardiac Catheterization, Hx Cardiac Surgery - packemaker., Hx Cholecystectomy, Hx Coronary Artery Bypass Graft, Hx Open Heart Surgery - valve replacement, pacemaker., Hx Valve Replacement, Other - Multiple colonocopies - Immunizations Immunizations up to date: Yes Hx Diphtheria, Pertussis, Tetanus Vaccination: Yes Hx Pneumococcal Vaccination: 06/05/15 Physical Exam - Vital signs Vitals: Resp Pulse Ox 15 99 11/15/18 12:54 11/15/18 12:54 Course - Re-evaluation Re-evalutation: 11/15/18 16:05 Vitals reviewed. Nursing notes reviewed. Patient presented to the hospital somnolent with a borderline blood pressure. He has been ordered IV fluids. Patient is in acute on chronic renal failure likely related to dehydration and poor oral intake. He has no leukocytosis or other symptoms to suggest infection. Patient is somnolent but will wake. His neurologic deficits are from his recent stroke and family denies any new neurologic deficits to necessitate CT imaging of his head. Patient will be admitted to the hospital for IV hydration and monitoring of his renal insufficiency. I did discuss the possibility of usp home or acute rehab with the family but they are unsure of what the next best step is. Patient's care discussed with Dr. Cobian who accepts admission. Laboratory 11/15/18 11/15/18 11/15/18 13:00 13:00 13:00 WBC 10.5 RBC 4.02 L Hgb 10.3 L Hct 31.8 L MCV 79 L MCH 25.6 L MCHC 32.4 RDW 18.0 H Plt Count 565 H Seg Neutrophils % 69.1 Lymphocytes % 10.7 L Monocytes % 7.8 Eosinophils % 11.3 H Basophils % 1.1 Absolute Neutrophils 7.2 Absolute Lymphocytes 1.1 Absolute Monocytes 0.8 Absolute Eosinophils 1.2 H Absolute Basophils 0.1 Sodium 133.3 L Potassium 5.0 Chloride 97 L Carbon Dioxide 29 Anion Gap 7 BUN 36 H Creatinine 2.84 H Est GFR ( Amer) 26 L Est GFR (Non-Af Amer) 21 L Glucose 126 H Calcium 9.5 Total Bilirubin 1.3 Direct Bilirubin 1.0 H Neonat Total Bilirubin Not Reportable Neonat Direct Bilirubin Not Reportable Neonat Indirect Bili Not Reportable AST 31 ALT 18 L Alkaline Phosphatase 72 Creatine Kinase 39 L CK-MB (CK-2) 0.62 Troponin I < 0.012 Total Protein 7.1 Albumin 3.3 L - Vital Signs Vital signs: Temp Pulse Resp BP Pulse Ox 97.8 F 72 14 98/53 L 97 11/15/18 15:44 11/15/18 13:12 11/15/18 15:01 11/15/18 15:01 11/15/18 15:01 - Laboratory Result Diagrams: 11/15/18 13:00 11/15/18 13:00 Laboratory results interpreted by me: 11/15/18 11/15/18 13:00 13:00 RBC 4.02 L Hgb 10.3 L Hct 31.8 L MCV 79 L MCH 25.6 L RDW 18.0 H Plt Count 565 H Lymphocytes % 10.7 L Eosinophils % 11.3 H Absolute Eosinophils 1.2 H Sodium 133.3 L Chloride 97 L BUN 36 H Creatinine 2.84 H Est GFR ( Amer) 26 L Est GFR (Non-Af Amer) 21 L Glucose 126 H Direct Bilirubin 1.0 H ALT 18 L Creatine Kinase 39 L Albumin 3.3 L - EKG Interpretation by Me Additional EKG results interpreted by me: 11/15/18 16:06 Interpreted by myself 1257: Normal sinus rhythm, rate 75, normal axis, nonspecific idioventricular conduction delay, no STEMI Discharge - Discharge Clinical Impression: Dehydration Acute on chronic renal failure Qualifiers: Acute renal failure type: unspecified Chronic kidney disease stage: unspecified stage Qualified Code(s): N17.9 - Acute kidney failure, unspecified; N18.9 - Chronic kidney disease, unspecified Anemia Qualifiers: Anemia type: other cause Other causes of anemia: other cause, not classified Qualified Code(s): D64.89 - Other specified anemias Failure to thrive Qualifiers: Failure to thrive age range: in adult Qualified Code(s): R62.7 - Adult failure to thrive Condition: Stable Disposition: ADMITTED OBSERVATION Admitting Provider: Aranza (Hospitalist)
[2018-11-15] MEDS ORDERED: MAG HYDROX/AL HYDROX/SIMETH SUSP 30 ML UDCUP PO PRN (17:38)
[2018-11-15] MEDS ORDERED: MAGNESIUM HYDROXIDE SUSP 30 ML UDCUP PO PRN (17:38)
[2018-11-15] MEDS ORDERED: PROMETHAZINE HCL 25 MG TABLET PO PRN (17:38)
[2018-11-15] MEDS ORDERED: TRAMADOL HCL 50 MG TABLET PO PRN (17:47)
--- NOTE | 2018-11-15 18:46 | EKG REPORT ---
SEVERITY:- ABNORMAL ECG - SINUS RHYTHM NONSPECIFIC INTRAVENTRICULAR CONDUCTION DELAY PROBABLE INFERIOR INFARCT, AGE INDETERMINATE ABNRM R PROG, CONSIDER ASMI OR LEAD PLACEMENT : Confirmed by: Bert Montes MD 15-Nov-2018 18:46:17
[2018-11-15] MEDS: DOCUSATE SODIUM 100 MG CAPSULE PO SCH (18:55)
--- NOTE | 2018-11-15 20:34 | PDOC H&P ---
History of Present Illness Admission Date/PCP: 11/15/18 16:25 GABINO PEREIRA MD Patient complains of: Failure to thrive History of Present Illness: LILIA FANG is a 83 year old male with a complex medical history. He has had 2 bovine valve replacements and bypass surgery as well as to cardiac stents and pacemaker implant. He was admitted in September for a gastrointestinal bleed. He was transferred to [facility] in [place]. His blood thinners were stopped and he suffered an ischemic stroke. He was discharged from [facility] on October 10 and went to rehab. He was recently discharged from rehab. The patient and his feel that he was discharged too early. Over the last several days he has grown increasingly weak. His appetite is been quite poor. He has had several falls. He reports that the falls are related to his arthritic knees giving way. He has gotten progressively weaker and now he cannot self propel in his wheelchair. He has significant deficits with regard to ADLs. He has fallen at least 3 times since he has been home. With his decline in condition, the home health nurse suggested that he report to the emergency room. He was found to have a normal white count. He is anemic. He has hyponatremia and his BUN and creatinine are increased from his baseline. The patient requires IV hydration. He is too compromised to return home. He was referred to the hospital service for admission. Past Medical History Cardiac Medical History: Reports: Coronary Artery Disease, Myocardial Infarction - x3, Hyperlipidema, Hypertension Neurological Medical History: Reports: Migraine Denies: Seizures Endocrine Medical History: Reports: Diabetes Mellitus Type 1, Diabetes Mellitus Type 2, Hypothyroidism Renal/ Medical History: Reports: Chronic Kidney Disease GI Medical History: Reports: Diverticulitis, Gastroesophageal Reflux Disease, Other - GI bleed Musculoskeltal Medical History: Reports: Arthritis Psychiatric Medical History: Denies: Depression Hematology: Reports: Anemia Past Surgical History Past Surgical History: Reports: Cardiac Catheterization, Cholecystectomy, Coronary Artery Bypass Graft, Valve Replacement, Other - Multiple colonocopies Social History Information Source: Patient - And spouse Lives with: Spouse/Significant other Smoking Status: Former Smoker Last Time Smoked: 50 years ago Frequency of Alcohol Use: None Hx Recreational Drug Use: No Drugs: None Hx Prescription Drug Abuse: No - Advance Directive Resuscitation Status: Full Code Surrogate healthcare decision maker:: They do not have a completed document however the patient's , who is at the bedside, is the designated decision maker. Family History Family History: Arthritis, DM, Hypertension, Malignancy, Other - cancer Parental Family History Reviewed: Yes Children Family History Reviewed: Yes Sibling(s) Family History Reviewed.: Yes Medication/Allergy Home Medications: Aspirin [Lo-Dose Aspirin EC] 81 mg PO DAILY 11/15/18 Atorvastatin Calcium [Lipitor 40 mg Tablet] 40 mg PO QHS 11/15/18 Clopidogrel Bisulfate [Plavix 75 mg Tablet] 75 mg PO DAILY 11/15/18 Fenofibrate [Lipofen] 54 mg PO QHS 11/15/18 Folic Acid [Folvite 1 mg Tablet] 1 mg PO DAILY 11/15/18 Furosemide [Lasix 20 mg Tablet] 20 mg PO MOWEFR 11/15/18 Isosorbide Mononitrate [Imdur 30 mg Tablet.er] 15 mg PO DAILY 11/15/18 Levothyroxine Sodium 50 mcg PO Q6AM 11/15/18 Loratadine [Claritin 10 mg Tablet] 10 mg PO DAILY 11/15/18 Losartan Potassium [Cozaar 100 mg Tablet] 100 mg PO DAILY 11/15/18 Metoprolol Tartrate [Lopressor 25 mg Tablet] 12.5 mg PO Q12 11/15/18 Mirtazapine 7.5 mg PO QHS 11/15/18 Omeprazole 40 mg PO DAILY 11/15/18 Tramadol HCl/Acetaminophen [Tramadol-Acetaminophn 37.5-325] 1 each PO BID 11/15/18 Allergies/Adverse Reactions: No Known Allergies Allergy (Verified 08/02/18 01:31) Review of Systems Constitutional: PRESENT: anorexia, fatigue, weakness Eyes: ABSENT: visual disturbances Ears: ABSENT: hearing changes Nose, Mouth, and Throat: PRESENT: other - Patient diagnosed with dysphagia after the CVA. Practices chin tuck and swallow and cannot have liquids through a straw.. ABSENT: mouth pain, sore throat Cardiovascular: ABSENT: chest pain, orthropnea, palpitations Respiratory: ABSENT: cough, hemoptysis, sputum Gastrointestinal: ABSENT: abdominal pain, constipation, diarrhea Genitourinary: ABSENT: dysuria, hematuria Musculoskeletal: PRESENT: muscle weakness Integumentary: ABSENT: lesions, rash Neurological: PRESENT: abnormal gait, abnormal movements, abnormal speech, focal weakness - Left arm, frequent falls, other - Dysarthria Psychiatric: PRESENT: depression. ABSENT: anxiety Endocrine: ABSENT: cold intolerance, heat intolerance Hematologic/Lymphatic: ABSENT: easy bleeding, easy bruising Physical Exam Vital Signs: Temp Pulse Resp BP Pulse Ox 97.8 F 72 17 128/84 H 95 11/15/18 15:44 11/15/18 13:12 11/15/18 17:01 11/15/18 17:01 11/15/18 17:01 Intake & Output 11/14/18 11/15/18 11/16/18 06:59 06:59 06:59 Intake Total 1000 Balance 1000 Weight 62.596 kg General appearance: PRESENT: cooperative, mild distress, well-developed - But sickly appearing 83-year-old patient laying in bed Head exam: PRESENT: atraumatic, normocephalic Eye exam: PRESENT: conjunctiva pale, EOMI. ABSENT: nystagmus, scleral icterus Ear exam: PRESENT: normal external ear exam Mouth exam: PRESENT: dry mucosa, tongue midline, other - Left facial droop with dysarthria Throat exam: ABSENT: post pharyngeal erythema Neck exam: ABSENT: carotid bruit, JVD, lymphadenopathy, tracheostomy Respiratory exam: PRESENT: clear to auscultation hunter - But with congested cough, symmetrical. ABSENT: accessory muscle use, rales, rhonchi, tachypnea, wheezes Cardiovascular exam: PRESENT: RRR, +S1, +S2, systolic murmur - 2/6 GI/Abdominal exam: PRESENT: normal bowel sounds, soft. ABSENT: distended, tend erness Rectal exam: PRESENT: deferred Gentrourinary exam: ABSENT: indwelling catheter Extremities exam: ABSENT: calf tenderness, pedal edema Musculoskeletal exam: PRESENT: other - Slight puffiness in the left arm. Neurological exam: PRESENT: alert, awake, oriented to person, oriented to place, oriented to time, oriented to situation, motor sensory deficit - Left arm is mar kedly weak. Squeeze is 1/5. Markedly decreased function. Left arm is somewhat puffy. Right upper extremity is completely functional. Slightly lessened but symmetric plantar and dorsiflexion.. ABSENT: CN II-XII grossly intact - Dysarthria Psychiatric exam: PRESENT: appropriate affect - Affect reflects his current clinical state. ABSENT: agitated, anxious Focused psych exam: ABSENT: delusional Skin exam: PRESENT: other - Occasional ecchymotic areas. Skin is very thin and dry. Results Laboratory Results: 11/15/18 13:00 11/15/18 13:00 11/15/18 11/15/18 13:00 13:00 WBC 10.5 RBC 4.02 L Hgb 10.3 L Hct 31.8 L MCV 79 L MCH 25.6 L MCHC 32.4 RDW 18.0 H Plt Count 565 H Seg Neutrophils % 69.1 Lymphocytes % 10.7 L Monocytes % 7.8 Eosinophils % 11.3 H Basophils % 1.1 Absolute Neutrophils 7.2 Absolute Lymphocytes 1.1 Absolute Monocytes 0.8 Absolute Eosinophils 1.2 H Absolute Basophils 0.1 Sodium 133.3 L Potassium 5.0 Chloride 97 L Carbon Dioxide 29 Anion Gap 7 BUN 36 H Creatinine 2.84 H Est GFR ( Amer) 26 L Est GFR (Non-Af Amer) 21 L Glucose 126 H Calcium 9.5 Total Bilirubin 1.3 AST 31 ALT 18 L Alkaline Phosphatase 72 Total Protein 7.1 Albumin 3.3 L 11/15/18 11/15/18 13:00 13:00 Creatine Kinase 39 L CK-MB (CK-2) 0.62 Troponin I < 0.012 Assessment and Plan - Diagnosis (1) Acute on chronic renal failure Qualifiers: Acute renal failure type: unspecified Chronic kidney disease stage: stage 3 (moderate) Qualified Code(s): N17.9 - Acute kidney failure, unspecified; N18.3 - Chronic kidney disease, stage 3 (moderate) Is this a current diagnosis for this admission?: Yes Plan: 11/15/2018-the patient has declined since he has been home. He is getting home health with therapeutic modalities. His appetite has decreased. He has become quite dehydrated. His BUN is almost twice what it is at his baseline. The patient will require IV fluid. We will watch his intake and output closely as he could easily go into heart failure. Monitor his labs. (2) Dehydration Is this a current diagnosis for this admission?: Yes Plan: 11/15/2018-by the clinical picture and altered renal function the patient has not taken in adequate fluids. He has been getting his furosemide. The combination of these 2 has caused an acute kidney injury. The patient will receive IV fluids. We will need to monitor his renal function but also his intake and output as he is susceptible to congestive heart failure. (3) Anemia Qualifiers: Anemia type: other cause Other causes of anemia: other cause, not classified Qualified Code(s): D64.89 - Other specified anemias Is this a current diagnosis for this admission?: Yes Plan: 11/15/2018-it is a microcytic anemia. It is probably a combination of his recent critical illness as well as his chronic renal insufficiency. He is on folic acid. I will consider adding a multivitamin which will help with his overall state. Continue to monitor hemoglobin. (4) Failure to thrive Qualifiers: Failure to thrive age range: in adult Qualified Code(s): R62.7 - Adult failure to thrive Is this a current diagnosis for this admission?: Yes Plan: 11/15/2018-the patient done extremely poorly since discharging from rehab. He still has marked weakness in his left arm. His reports that he needs max assist with ADLs. He has lost the ability to self propel in his wheelchair. The patient's felt that he was discharged from the facility to early. I did explain that it is sometimes based on the patient's function and if he is not showing consistent improvement he is susceptible to discharge. I am not sure of the exact date of discharge from rehab with regard to readmission within the 30-day window. I have ordered PT, OT and speech therapies. I also ordered discharge planning. (5) Dysphagia as late effect of cerebrovascular accident (CVA) Is this a current diagnosis for this admission?: Yes Plan: 11/15/2018-the patient continues to working with speech therapy at home. He has graduated to thin liquids but no straws. He has been utilizing the chin tuck and swallow technique. I have asked that he be on a chopped diet with thin liquids as this is likely easier for him to process. I have asked speech therapy to reassess and work with the patient. His weekend condition may have compromised his swallow more. 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 Her P may also be able to work on phonation. Despite the dysarthria he is fairly easy to understand. (7) Coronary artery disease involving [place] coronary artery Qualifiers: [place] vs. transplanted heart: [place] heart Associated angina: without angina Qualified Code(s): I25.10 - Atherosclerotic heart disease of [place] coronary artery without angina pectoris Is this a current diagnosis for this admission?: Yes Plan: 11/15/2018-the patient has had bypass surgery as well as 2 stents placed years later. He also has a history of bovine valve replacement x2. We will continue his medications (metoprolol tartrate 12.5 mg twice daily, losartan 100 mg daily, Plavix 75 mg daily, isosorbide mononitrate 15 mg daily, Lipitor 40 mg daily and aspirin 81 daily) at this time. He is not exhibiting any acute coronary symptoms. (8) Hypothyroidism Qualifiers: Hypothyroidism type: unspecified Qualified Code(s): E03.9 - Hypothyroidism, unspecified Is this a current diagnosis for this admission?: Yes Plan: 11/15/2018-continue levothyroxine 50 mcg daily. (9) Hyperlipidemia Qualifiers: Hyperlipidemia type: mixed hyperlipidemia Qualified Code(s): E78.2 - Mixed hyperlipidemia Is this a current diagnosis for this admission?: Yes Plan: 11/15/2018-we will continue the patient's statin and fibrillate therapy. - Time Time Spent with patient: 35 or more minutes Medications reviewed and adjusted accordingly: Yes - Plan Summary Plan Summary: 11/15/2018-the patient will be admitted to mainly correct his acute kidney injury. However he exhibits obvious failure to thrive with decline since discharging from the rehab facility. It is possible that with his multiple comorbidities his recovery will be limited. I have asked discharge planning to see the patient with regard to returning to a skilled facility or going home with home health.
--- NOTE | 2018-11-15 20:40 | ADVANCED CARE ---
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 Resuscitation Status: Full Code Discussion: When came time to decide on CODE STATUS the patient initially hesitated. I explained the extreme low likelihood that the patient would survive cardiac arrest. I explained that during CPR we break ribs and it is a very aggressive intervention. I pointed out the patient's significant cardiac history and recent stroke. I reviewed the improbability of successful resuscitation and the possibility of resuscitation with hypoxic brain injury. The patient spoke of trying it to see if it works. I explained that this is not all or none decision. The patient states that he would not want to be on a ventilator permanently. The suggested that everything be done. She stated "I do not want to lose you ". Care Planning Goals: Today's discussion centered around the actual CODE STATUS. At this time they wish full measures. The patient is appropriate for a palliative care consult. This option will be discussed with the family tomorrow. Document(s) Completed: No documents completed today Time Spent: 25 minutes
[2018-11-15 20:43] LABS: APPEARANCE,URINE CLEAR; BILIRUBIN,URINE NEGATIVE (NEGATIVE); COLOR,URINE YELLOW; GLUCOSE, URINE NEGATIVE (NEGATIVE); KETONES,URINE NEGATIVE (NEGATIVE); LEUKOCYTE ESTERASE,URINE NEGATIVE (NEGATIVE); NITRITE,URINE NEGATIVE (NEGATIVE); PROTEIN,URINE NEGATIVE (NEGATIVE); URINE SPECIFIC GRAVITY 1.011
[2018-11-15] MEDS: MIRTAZAPINE 15 MG TABLET PO SCH (21:24)
[2018-11-15] MEDS: METOPROLOL TARTRATE 25 MG TABLET PO SCH (21:24)
[2018-11-15] MEDS: ATORVASTATIN CALCIUM 40 MG TABLET PO SCH (21:24)
[2018-11-15] MEDS: HEPARIN SOD (PORCINE) 5,000 UNIT/ML 1 ML SYRINGE SUBCUT SCH (21:25)
[2018-11-16] MEDS: HEPARIN SOD (PORCINE) 5,000 UNIT/ML 1 ML SYRINGE SUBCUT SCH ×3 (05:44→22:00)
[2018-11-16] MEDS: LEVOTHYROXINE SODIUM 0.05 MG TABLET PO SCH (05:45)
[2018-11-16] MEDS: PANTOPRAZOLE SODIUM 40 MG TABLET.DR PO SCH ×2 (05:45→17:13)
[2018-11-16 06:14] LABS: ABSOLUTE EOSINOPHILS # (AUTO) 1.5 10^3/uL (0.0-0.6); ABSOLUTE MONOCYTES (AUTO) 0.6 10^3/uL (0.1-1.4); ABSOLUTE NEUT (AUTO) 5.2 10^3/uL (1.7-8.2); BASOPHILS % (AUTO) 0.3 % (0-2); EOSINOPHILS % (AUTO) 17.6 % (0-6); HEMATOCRIT 31.6 % (37.9-51.0); HEMOGLOBIN 10.5 g/dL (13.5-17.0); LYMPHOCYTES % (AUTO) 12.2 % (13-45); MEAN CORPUSCULAR HGB CONC 33.3 g/dL (32.0-36.0); MEAN CORPUSCULAR VOLUME 78 fl (80-97); MONOCYTES % (AUTO) 6.8 % (3-13); PLATELET COUNT 467 10^3/uL (150-450); RED BLOOD COUNT 4.06 10^6/uL (4.35-5.55); RED CELL DISTRIBUTION WIDTH 18.3 % (11.5-14.0); SEGMENTED NEUTROPHILS % (AUTO) 63.1 % (42-78); TOTAL CELLS COUNTED % (AUTO) 100 %; WHITE BLOOD COUNT 8.2 10^3/uL (4.0-10.5)
[2018-11-16 06:38] LABS: ANION GAP 12 (5-19); BLOOD UREA NITROGEN 31 mg/dL (7-20); CARBON DIOXIDE 21 mmol/L (22-30); CHLORIDE 104 mmol/L (98-107); GLUCOSE 72 mg/dL (75-110); PHOSPHORUS 4.5 mg/dL (2.5-4.5); POTASSIUM 4.4 mmol/L (3.6-5.0); SODIUM 137.3 mmol/L (137-145)
[2018-11-16] MEDS: ISOSORBIDE MONONITRATE 30 MG TAB.ER.24H PO SCH (09:41)
[2018-11-16] MEDS: ASPIRIN 81 MG TABLET, ENT COATED PO SCH (09:41)
[2018-11-16] MEDS: FENOFIBRATE NANOCRYSTALLIZED 48 MG TABLET PO SCH (09:41)
[2018-11-16] MEDS: FOLIC ACID 1 MG TABLET PO SCH (09:41)
[2018-11-16] MEDS: CLOPIDOGREL BISULFATE 75 MG TABLET PO SCH (09:41)
[2018-11-16] MEDS: DOCUSATE SODIUM 100 MG CAPSULE PO SCH ×2 (09:41→17:13)
[2018-11-16] MEDS: METOPROLOL TARTRATE 25 MG TABLET PO SCH ×2 (09:41→21:59)
[2018-11-16] MEDS: LOSARTAN POTASSIUM 50 MG TABLET PO SCH (09:42)
[2018-11-16] MEDS: LORATADINE 10 MG TABLET PO SCH (09:42)
[2018-11-16] MEDS ORDERED: ISOSORBIDE MONONITRATE 60 MG TAB.ER.24H PO SCH (10:00)
--- NOTE | 2018-11-16 16:44 | PDOC PROGRESS REPORT ---
Subjective Progress Note for:: 11/16/18 Subjective:: No adverse events overnight. No shortness of breath. Appetite is still poor. He had a blueberry muffin and 1/2 pint of milk this morning and that is all he is eaten all day. He said he has no appetite. Reason For Visit: DEHYDRATION,ACUTE KIDNEY INJURY,FAILURE TO THRIVE Physical Exam Vital Signs: Temp Pulse Resp BP Pulse Ox 97.4 F 73 17 90/60 L 92 11/16/18 13:00 11/16/18 14:00 11/16/18 13:00 11/16/18 13:00 11/16/18 13:00 Intake & Output 11/15/18 11/16/18 11/17/18 06:59 06:59 06:59 Intake Total 1240 Output Total 700 Balance 540 Weight 65.4 kg General appearance: PRESENT: no acute distress, cooperative, disheveled Respiratory exam: PRESENT: clear to auscultation hunter, symmetrical, unlabored. ABSENT: accessory muscle use, crackles, prolonged expiratory phas, rhonchi, tachypnea, wheezes Cardiovascular exam: PRESENT: RRR, +S1, +S2, systolic murmur Pulses: PRESENT: normal carotid pulses Vascular exam: PRESENT: normal capillary refill GI/Abdominal exam: PRESENT: normal bowel sounds, soft. ABSENT: distended, guarding, rebound, tenderness Extremities exam: PRESENT: other - He has some pitting edema in his bilateral upper extremities but none in his lower extremity. ABSENT: clubbing, pedal edema Musculoskeletal exam: PRESENT: normal inspection. ABSENT: deformity Neurological exam: PRESENT: alert, awake, oriented to person, oriented to place, oriented to situation Psychiatric exam: PRESENT: appropriate affect, normal mood Skin exam: PRESENT: dry, warm Results Laboratory Results: 11/16/18 05:33 11/16/18 05:33 11/15/18 11/16/18 11/16/18 20:20 05:33 05:33 WBC 8.2 RBC 4.06 L Hgb 10.5 L Hct 31.6 L MCV 78 L MCH 26.0 L MCHC 33.3 RDW 18.3 H Plt Count 467 H Seg Neutrophils % 63.1 Lymphocytes % 12.2 L Monocytes % 6.8 Eosinophils % 17.6 H Basophils % 0.3 Absolute Neutrophils 5.2 Absolute Lymphocytes 1.0 Absolute Monocytes 0.6 Absolute Eosinophils 1.5 H Absolute Basophils 0.0 Sodium 137.3 Potassium 4.4 Chloride 104 Carbon Dioxide 21 L Anion Gap 12 BUN 31 H Creatinine 2.43 H Est GFR ( Amer) 31 L Est GFR (Non-Af Amer) 26 L Glucose 72 L Calcium 9.0 Phosphorus 4.5 Magnesium 2.1 Albumin 3.0 L Urine Color YELLOW Urine Appearance CLEAR Urine pH 6.0 Ur Specific [place] 1.011 Urine Protein NEGATIVE Urine Glucose (UA) NEGATIVE Urine Ketones NEGATIVE Urine Blood NEGATIVE Urine Nitrite NEGATIVE Ur Leukocyte Esterase NEGATIVE Urine WBC (Auto) 0 Urine RBC (Auto) 1 11/15/18 11/15/18 13:00 13:00 Creatine Kinase 39 L CK-MB (CK-2) 0.62 Troponin I < 0.012 Assessment and Plan - Diagnosis (1) Acute on chronic renal failure Qualifiers: Acute renal failure type: unspecified Chronic kidney disease stage: stage 3 (moderate) Qualified Code(s): N17.9 - Acute kidney failure, unspecified; N18.3 - Chronic kidney disease, stage 3 (moderate) Is this a current diagnosis for this admission?: Yes Plan: Improving with gentle IV fluids, cautiously hydrating him due to his multiple cardiac problems (2) Coronary artery disease involving [place] coronary artery Qualifiers: [place] vs. transplanted heart: [place] heart Associated angina: without angina Qualified Code(s): I25.10 - Atherosclerotic heart disease of [place] coronary artery without angina pectoris Is this a current diagnosis for this admission?: Yes Plan: Has multiple cardiac issues, continuing his home medications (3) Dehydration Is this a current diagnosis for this admission?: Yes Plan: Cautious IV hydration as noted above (4) Dysphagia as late effect of cerebrovascular accident (CVA) Is this a current diagnosis for this admission?: Yes Plan: Modified diet, but he is not eating very much (5) Failure to thrive Qualifiers: Failure to thrive age range: in adult Qualified Code(s): R62.7 - Adult failure to thrive Is this a current diagnosis for this admission?: Yes Plan: He is not walking and not eating. His poor p.o. intake is led to his current hospitalization. We are trying to optimize him and looking at disposition options. - Time Time Spent with patient: 15-24 minutes
[2018-11-16] MEDS: ACETAMINOPHEN 325 MG TABLET PO PRN (17:12)
[2018-11-16] MEDS: NORMAL SALINE 1000 ML 1,000 ML IV PRN (21:58)
[2018-11-16] MEDS: ATORVASTATIN CALCIUM 40 MG TABLET PO SCH (21:59)
[2018-11-16] MEDS: MIRTAZAPINE 15 MG TABLET PO SCH (21:59)
[2018-11-17] MEDS: HEPARIN SOD (PORCINE) 5,000 UNIT/ML 1 ML SYRINGE SUBCUT SCH ×3 (05:25→21:12)
[2018-11-17] MEDS: LEVOTHYROXINE SODIUM 0.05 MG TABLET PO SCH (05:25)
[2018-11-17] MEDS: PANTOPRAZOLE SODIUM 40 MG TABLET.DR PO SCH ×2 (05:26→17:07)
[2018-11-17] MEDS: ACETAMINOPHEN 325 MG TABLET PO PRN ×2 (05:26→21:23)
[2018-11-17 09:01] LABS: ANION GAP 8 (5-19); BLOOD UREA NITROGEN 25 mg/dL (7-20); CALCIUM 8.8 mg/dL (8.4-10.2); CARBON DIOXIDE 22 mmol/L (22-30); CHLORIDE 106 mmol/L (98-107); GLUCOSE 133 mg/dL (75-110); POTASSIUM 4.5 mmol/L (3.6-5.0); SODIUM 135.6 mmol/L (137-145)
[2018-11-17] MEDS: ISOSORBIDE MONONITRATE 30 MG TAB.ER.24H PO SCH (10:43)
[2018-11-17] MEDS: LORATADINE 10 MG TABLET PO SCH (10:45)
[2018-11-17] MEDS: ASPIRIN 81 MG TABLET, ENT COATED PO SCH (10:45)
[2018-11-17] MEDS: METOPROLOL TARTRATE 25 MG TABLET PO SCH ×2 (10:46→21:12)
[2018-11-17] MEDS: DOCUSATE SODIUM 100 MG CAPSULE PO SCH ×2 (10:49→17:07)
[2018-11-17] MEDS: CLOPIDOGREL BISULFATE 75 MG TABLET PO SCH (10:49)
[2018-11-17] MEDS: LOSARTAN POTASSIUM 50 MG TABLET PO SCH (10:49)
[2018-11-17] MEDS: FENOFIBRATE NANOCRYSTALLIZED 48 MG TABLET PO SCH (10:50)
[2018-11-17] MEDS: FOLIC ACID 1 MG TABLET PO SCH (10:53)
--- NOTE | 2018-11-17 15:58 | PDOC PROGRESS REPORT ---
Subjective Progress Note for:: 11/17/18 Subjective:: No adverse events overnight. No new complaints. He has not displayed any signs of fluid overload or shortness of breath. Appetite is still not very good. Reason For Visit: DEHYDRATION,ACUTE KIDNEY INJURY,FAILURE TO THRIVE Physical Exam Vital Signs: Temp Pulse Resp BP Pulse Ox 98.1 F 67 20 130/61 H 96 11/17/18 12:13 11/17/18 14:00 11/17/18 12:13 11/17/18 12:13 11/17/18 12:13 Intake & Output 11/16/18 11/17/18 11/18/18 06:59 06:59 06:59 Intake Total 1240 670 500 Output Total 700 500 300 Balance 540 170 200 Weight 65.4 kg General appearance: PRESENT: no acute distress, cooperative, disheveled Respiratory exam: PRESENT: clear to auscultation [place], symmetrical, unlabored. ABSENT: accessory muscle use, crackles, prolonged expiratory phase, rhonchi, tachypnea, wheezes Cardiovascular exam: PRESENT: RRR, +S1, +S2, systolic murmur Pulses: PRESENT: normal carotid pulses Vascular exam: PRESENT: normal capillary refill GI/Abdominal exam: PRESENT: normal bowel sounds, soft. ABSENT: distended, guarding, rebound, tenderness Extremities exam: PRESENT: other - He has some pitting edema in his bilateral upper extremities but none in his lower extremity. ABSENT: clubbing, pedal edema Musculoskeletal exam: PRESENT: normal inspection. ABSENT: deformity Neurological exam: PRESENT: alert, awake, oriented to person, oriented to place, oriented to situation Psychiatric exam: PRESENT: appropriate affect, normal mood Skin exam: PRESENT: dry, warm Results Laboratory Results: 11/16/18 05:33 11/17/18 08:35 11/17/18 08:35 Sodium 135.6 L Potassium 4.5 Chloride 106 Carbon Dioxide 22 Anion Gap 8 BUN 25 H Creatinine 2.18 H Est GFR ( Amer) 35 L Est GFR (Non-Af Amer) 29 L Glucose 133 H Calcium 8.8 11/15/18 11/15/18 13:00 13:00 Creatine Kinase 39 L CK-MB (CK-2) 0.62 Troponin I < 0.012 Assessment and Plan - Diagnosis (1) Acute on chronic renal failure Qualifiers: Acute renal failure type: unspecified Chronic kidney disease stage: stage 3 (moderate) Qualified Code(s): N17.9 - Acute kidney failure, unspecified; N18.3 - Chronic kidney disease, stage 3 (moderate) Is this a current diagnosis for this admission?: Yes Plan: Creatinine is responding to cautious hydration. Looks like his baseline creatinine is 1.7-1.8. (2) Coronary artery disease involving [place] coronary artery Qualifiers: [place] vs. transplanted heart: [place] heart Associated angina: without angina Qualified Code(s): I25.10 - Atherosclerotic heart disease of [place] coronary artery without angina pectoris Is this a current diagnosis for this admission?: Yes Plan: Has multiple cardiac issues, continuing his home medications (3) Dehydration Is this a current diagnosis for this admission?: Yes Plan: Improving with IV fluid hydration. (4) Dysphagia as late effect of cerebrovascular accident (CVA) Is this a current diagnosis for this admission?: Yes Plan: Modified diet, but he is not eating very much (5) Failure to thrive Qualifiers: Failure to thrive age range: in adult Qualified Code(s): R62.7 - Adult failure to thrive Is this a current diagnosis for this admission?: Yes Plan: He is not walking and not eating. His poor p.o. intake is led to his current hospitalization. We are trying to optimize him and looking at disposition options. - Time Time Spent with patient: 15-24 minutes
[2018-11-17] MEDS: NORMAL SALINE 1000 ML 1,000 ML IV PRN (21:13)
[2018-11-17] MEDS: ATORVASTATIN CALCIUM 40 MG TABLET PO SCH (21:13)
[2018-11-17] MEDS: MIRTAZAPINE 15 MG TABLET PO SCH (21:13)
[2018-11-18] MEDS: PANTOPRAZOLE SODIUM 40 MG TABLET.DR PO SCH ×2 (05:19→16:47)
[2018-11-18] MEDS: LEVOTHYROXINE SODIUM 0.05 MG TABLET PO SCH (05:19)
[2018-11-18] MEDS: NORMAL SALINE 1000 ML 1,000 ML IV PRN (05:19)
[2018-11-18] MEDS: HEPARIN SOD (PORCINE) 5,000 UNIT/ML 1 ML SYRINGE SUBCUT SCH ×3 (05:19→21:17)
[2018-11-18] MEDS: METOPROLOL TARTRATE 25 MG TABLET PO SCH ×2 (08:45→21:12)
[2018-11-18] MEDS: ISOSORBIDE MONONITRATE 30 MG TAB.ER.24H PO SCH (08:46)
[2018-11-18] MEDS: FENOFIBRATE NANOCRYSTALLIZED 48 MG TABLET PO SCH (09:26)
[2018-11-18] MEDS: CLOPIDOGREL BISULFATE 75 MG TABLET PO SCH (09:26)
[2018-11-18] MEDS: FOLIC ACID 1 MG TABLET PO SCH (09:26)
[2018-11-18] MEDS: DOCUSATE SODIUM 100 MG CAPSULE PO SCH ×2 (09:26→17:13)
[2018-11-18] MEDS: LOSARTAN POTASSIUM 50 MG TABLET PO SCH (09:26)
[2018-11-18] MEDS: ASPIRIN 81 MG TABLET, ENT COATED PO SCH (09:26)
[2018-11-18] MEDS: LORATADINE 10 MG TABLET PO SCH (09:26)
[2018-11-18 12:19] LABS: ANION GAP 7 (5-19); BLOOD UREA NITROGEN 21 mg/dL (7-20); CALCIUM 9.3 mg/dL (8.4-10.2); CARBON DIOXIDE 20 mmol/L (22-30); CHLORIDE 111 mmol/L (98-107); GLUCOSE 91 mg/dL (75-110); POTASSIUM 5.2 mmol/L (3.6-5.0); SODIUM 137.8 mmol/L (137-145)
--- NOTE | 2018-11-18 17:30 | PDOC PROGRESS REPORT ---
Subjective Progress Note for:: 11/18/18 Subjective:: No adverse events overnight. No new complaints. Still has not much appetite. Urine output has been excellent. No shortness of breath. Reason For Visit: DEHYDRATION,ACUTE KIDNEY INJURY,FAILURE TO THRIVE Physical Exam Vital Signs: Temp Pulse Resp BP Pulse Ox 97.2 F 76 18 136/58 H 97 11/18/18 03:58 11/18/18 14:00 11/18/18 03:58 11/18/18 03:58 11/18/18 03:58 Intake & Output 11/17/18 11/18/18 11/19/18 06:59 06:59 06:59 Intake Total 670 3218 1240 Output Total 500 800 700 Balance 170 2418 540 Weight 69 kg General appearance: PRESENT: no acute distress, cooperative, disheveled Respiratory exam: PRESENT: clear to auscultation hunter, symmetrical, unlabored. ABSENT: accessory muscle use, crackles, prolonged expiratory phase, rhonchi, tachypnea, wheezes Cardiovascular exam: PRESENT: RRR, +S1, +S2, systolic murmur Pulses: PRESENT: normal carotid pulses Vascular exam: PRESENT: normal capillary refill GI/Abdominal exam: PRESENT: normal bowel sounds, soft. ABSENT: distended, gu arding, rebound, tenderness Extremities exam: PRESENT: other - He has some pitting edema in his bilateral upper extremities but none in his lower extremity. ABSENT: clubbing, pedal edema Musculoskeletal exam: PRESENT: normal inspection. ABSENT: deformity Neurological exam: PRESENT: alert, awake, oriented to person, oriented to place, oriented to situation Psychiatric exam: PRESENT: appropriate affect, normal mood Skin exam: PRESENT: dry, warm Results Laboratory Results: 11/16/18 05:33 11/18/18 11:46 11/18/18 11:46 Sodium 137.8 Potassium 5.2 H Chloride 111 H Carbon Dioxide 20 L Anion Gap 7 BUN 21 H Creatinine 2.10 H Est GFR ( Amer) 37 L Est GFR (Non-Af Amer) 30 L Glucose 91 Calcium 9.3 11/15/18 11/15/18 13:00 13:00 Creatine Kinase 39 L CK-MB (CK-2) 0.62 Troponin I < 0.012 Assessment and Plan - Diagnosis (1) Acute on chronic renal failure Qualifiers: Acute renal failure type: unspecified Chronic kidney disease stage: stage 3 (moderate) Qualified Code(s): N17.9 - Acute kidney failure, unspecified; N18.3 - Chronic kidney disease, stage 3 (moderate) Is this a current diagnosis for this admission?: Yes Plan: Creatinine is responding to cautious hydration. Looks like his baseline creatinine is 1.7-1.8. I have stopped his IV fluids today because his volume deficit has been corrected. Will encourage p.o. hydration. (2) Coronary artery disease involving [place] coronary artery Qualifiers: [place] vs. transplanted heart: [place] heart Associated angina: without angina Qualified Code(s): I25.10 - Atherosclerotic heart disease of [place] coronary artery without angina pectoris Is this a current diagnosis for this admission?: Yes Plan: Has multiple cardiac issues, continuing his home medications (3) Dehydration Is this a current diagnosis for this admission?: Yes Plan: Resolved (4) Dysphagia as late effect of cerebrovascular accident (CVA) Is this a current diagnosis for this admission?: Yes Plan: Modified diet, but he is not eating very much. His family says he is on Megace to encourage his appetite but it does not seem to be working. (5) Failure to thrive Qualifiers: Failure to thrive age range: in adult Qualified Code(s): R62.7 - Adult failure to thrive Is this a current diagnosis for this admission?: Yes Plan: He is not walking and not eating. His poor p.o. intake is led to his current hospitalization. We are trying to optimize him and looking at disposition options. - Time Time Spent with patient: 15-24 minutes
[2018-11-18] MEDS: ACETAMINOPHEN 325 MG TABLET PO PRN (18:50)
[2018-11-18] MEDS ORDERED: PHENOL/SODIUM PHENOLATE 100 SPRAY/177 ML BOTTLE PO PRN (19:17)
[2018-11-18] MEDS: ATORVASTATIN CALCIUM 40 MG TABLET PO SCH (21:12)
[2018-11-18] MEDS: MIRTAZAPINE 15 MG TABLET PO SCH (21:13)
[2018-11-18] MEDS ORDERED: PHENOL/SODIUM PHENOLATE 100 SPRAY/177 ML BOTTLE ONE (21:35)
[2018-11-19 05:17] LABS: ANION GAP 7 (5-19); BLOOD UREA NITROGEN 19 mg/dL (7-20); CALCIUM 9.3 mg/dL (8.4-10.2); CARBON DIOXIDE 21 mmol/L (22-30); CHLORIDE 111 mmol/L (98-107); GLUCOSE 89 mg/dL (75-110); POTASSIUM 4.6 mmol/L (3.6-5.0); SODIUM 138.6 mmol/L (137-145)
[2018-11-19] MEDS: LEVOTHYROXINE SODIUM 0.05 MG TABLET PO SCH (05:38)
[2018-11-19] MEDS: HEPARIN SOD (PORCINE) 5,000 UNIT/ML 1 ML SYRINGE SUBCUT SCH ×3 (05:38→21:39)
[2018-11-19] MEDS: PANTOPRAZOLE SODIUM 40 MG TABLET.DR PO SCH ×2 (05:38→17:10)
[2018-11-19] MEDS: FENOFIBRATE NANOCRYSTALLIZED 48 MG TABLET PO SCH (09:58)
[2018-11-19] MEDS: CLOPIDOGREL BISULFATE 75 MG TABLET PO SCH (09:58)
[2018-11-19] MEDS: LOSARTAN POTASSIUM 50 MG TABLET PO SCH (09:58)
[2018-11-19] MEDS: FOLIC ACID 1 MG TABLET PO SCH (09:58)
[2018-11-19] MEDS: ASPIRIN 81 MG TABLET, ENT COATED PO SCH (09:58)
[2018-11-19] MEDS: DOCUSATE SODIUM 100 MG CAPSULE PO SCH ×2 (09:58→17:10)
[2018-11-19] MEDS: LORATADINE 10 MG TABLET PO SCH (09:58)
[2018-11-19] MEDS: METOPROLOL TARTRATE 25 MG TABLET PO SCH ×2 (09:59→21:39)
[2018-11-19] MEDS: ISOSORBIDE MONONITRATE 30 MG TAB.ER.24H PO SCH (09:59)
[2018-11-19] MEDS ORDERED: ACETAMINOPHEN 325 MG TABLET PO PRN (13:30)
--- NOTE | 2018-11-19 15:12 | PDOC PROGRESS REPORT ---
Subjective Progress Note for:: 11/19/18 Subjective:: No adverse events overnight. No new complaints. He still to have much of an appetite but he was at least trying to eat something this morning. No shortness of breath. Reason For Visit: DEHYDRATION,ACUTE KIDNEY INJURY,FAILURE TO THRIVE Physical Exam Vital Signs: Temp Pulse Resp BP Pulse Ox 99.1 F 77 14 140/52 H 99 11/18/18 23:18 11/19/18 14:00 11/18/18 23:18 11/18/18 23:18 11/18/18 23:18 Intake & Output 11/18/18 11/19/18 11/20/18 06:59 06:59 06:59 Intake Total 3218 1760 Output Total 800 1800 Balance 2418 -40 Weight 69 kg 71.9 kg General appearance: PRESENT: no acute distress, cooperative, disheveled Respiratory exam: PRESENT: clear to auscultation hunter, symmetrical, unlabored. ABSENT: accessory muscle use, crackles, prolonged expiratory phase, rhonchi, tachypnea, wheezes Cardiovascular exam: PRESENT: RRR, +S1, +S2, systolic murmur Pulses: PRESENT: normal carotid pulses Vascular exam: PRESENT: normal capillary refill GI/Abdominal exam: PRESENT: normal bowel sounds, soft. ABSENT: distended, guarding, rebound, tenderness Extremities exam: PRESENT: other - He has some pitting edema in his bilateral upper extremities but none in his lower extremity. ABSENT: clubbing, pedal edema Musculoskeletal exam: PRESENT: normal inspection. ABSENT: deformity Neurological exam: PRESENT: alert, awake, oriented to person, oriented to place, oriented to situation Psychiatric exam: PRESENT: appropriate affect, normal mood Skin exam: PRESENT: dry, warm. He has some erythema in his upper extremities but it is the same temperature as the rest of his arm, and it has the appearance of chronic venous stasis Results Laboratory Results: 11/16/18 05:33 11/19/18 03:53 11/19/18 03:53 Sodium 138.6 Potassium 4.6 Chloride 111 H Carbon Dioxide 21 L Anion Gap 7 BUN 19 Creatinine 2.17 H Est GFR ( Amer) 35 L Est GFR (Non-Af Amer) 29 L Glucose 89 Calcium 9.3 11/15/18 11/15/18 13:00 13:00 Creatine Kinase 39 L CK-MB (CK-2) 0.62 Troponin I < 0.012 Assessment and Plan - Diagnosis (1) Acute on chronic renal failure Qualifiers: Acute renal failure type: unspecified Chronic kidney disease stage: stage 3 (moderate) Qualified Code(s): N17.9 - Acute kidney failure, unspecified; N18.3 - Chronic kidney disease, stage 3 (moderate) Is this a current diagnosis for this admission?: Yes Plan: Creatinine is stabilized in the 2.1 range. His urine output is excellent so his water deficit seems to have been corrected. We stopped his IV fluids. 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 transplanted heart: [place] heart Associated angina: without an [place] Qualified Code(s): I25.10 - Atherosclerotic heart disease of [place] coronary artery without angina pectoris Is this a current diagnosis for this admission?: Yes Plan: Has multiple cardiac issues, continuing his home medications (3) Dehydration Is this a current diagnosis for this admission?: Yes Plan: Resolved (4) Dysphagia as late effect of cerebrovascular accident (CVA) Is this a current diagnosis for this admission?: Yes Plan: Modified diet, but he is not eating very much. His family says he is on Megace to encourage his appetite but it does not seem to be working. He was at least trying to eat something this morning, the first time I have seen him do that. (5) Failure to thrive Qualifiers: Failure to thrive age range: in adult Qualified Code(s): R62.7 - Adult failure to thrive Is this a current diagnosis for this admission?: Yes Plan: He is not walking. His poor p.o. intake is led to his current hospitalization. We are trying to optimize him. [facility]. - Time Time Spent with patient: 15-24 minutes
[2018-11-19] MEDS: ATORVASTATIN CALCIUM 40 MG TABLET PO SCH (21:39)
[2018-11-19] MEDS: MIRTAZAPINE 15 MG TABLET PO SCH (21:39)
[2018-11-20] MEDS: HEPARIN SOD (PORCINE) 5,000 UNIT/ML 1 ML SYRINGE SUBCUT SCH ×3 (05:22→22:17)
[2018-11-20] MEDS: LEVOTHYROXINE SODIUM 0.05 MG TABLET PO SCH (05:23)
[2018-11-20] MEDS: PANTOPRAZOLE SODIUM 40 MG TABLET.DR PO SCH ×2 (05:23→16:37)
[2018-11-20] MEDS: METOPROLOL TARTRATE 25 MG TABLET PO SCH ×2 (09:50→22:17)
[2018-11-20] MEDS: LORATADINE 10 MG TABLET PO SCH (09:50)
[2018-11-20] MEDS: LOSARTAN POTASSIUM 50 MG TABLET PO SCH (09:50)
[2018-11-20] MEDS: DOCUSATE SODIUM 100 MG CAPSULE PO SCH ×2 (09:50→17:14)
[2018-11-20] MEDS: FENOFIBRATE NANOCRYSTALLIZED 48 MG TABLET PO SCH (09:51)
[2018-11-20] MEDS: CLOPIDOGREL BISULFATE 75 MG TABLET PO SCH (09:51)
[2018-11-20] MEDS: FOLIC ACID 1 MG TABLET PO SCH (09:51)
[2018-11-20] MEDS: ASPIRIN 81 MG TABLET, ENT COATED PO SCH (09:51)
[2018-11-20] MEDS: ISOSORBIDE MONONITRATE 30 MG TAB.ER.24H PO SCH (09:51)
--- NOTE | 2018-11-20 15:58 | PDOC PROGRESS REPORT ---
Subjective Progress Note for:: 11/20/18 Subjective:: This is a 3 years old male patient with past medical history of coronary artery disease, myocardial infarction 3 times, hyperlipidemia, hypertension, migraine, diabetes mellitus, hypothyroidism, chronic kidney disease, diverticulitis, gastroesophageal reflux disease and GI bleeding brought with chief complaint of failure to thrive. 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 His blood thinners were stopped and he suffered an ischemic stroke with residual left-sided weakness. He was recently discharged from rehab. The patient and his feels that his discharge was premature. Patient has poor appetite and he has been getting weaker and weaker to the extent cannot self pro pel in his wheelchair. He is inactive and his ADLs has significantly impaired. This morning patient seen resting in bed he is awake alert. He is not in pain distress. Reason For Visit: DEHYDRATION,ACUTE KIDNEY INJURY,FAILURE TO THRIVE Physical Exam Vital Signs: Temp Pulse Resp BP Pulse Ox 98.5 F 80 19 111/57 L 95 11/20/18 11:19 11/20/18 14:00 11/20/18 11:19 11/20/18 11:19 11/20/18 11:19 Intake & Output 11/19/18 11/20/18 11/21/18 06:59 06:59 06:59 Intake Total 1760 630 502 Output Total 1800 1090 150 Balance -40 -460 352 Weight 71.9 kg 69.8 kg General appearance: PRESENT: no acute distress Head exam: PRESENT: atraumatic Neck exam: ABSENT: carotid bruit, JVD, lymphadenopathy, thyromegaly Respiratory exam: PRESENT: clear to auscultation hunter. ABSENT: rales, rhonchi, wheezes Cardiovascular exam: PRESENT: systolic murmur GI/Abdominal exam: PRESENT: normal bowel sounds, soft. ABSENT: distended, guarding, mass, organolmegaly, rebound, tenderness Neurological exam: PRESENT: alert, awake Results Laboratory Results: 11/16/18 05:33 11/19/18 03:53 11/15/18 11/15/18 13:00 13:00 Creatine Kinase 39 L CK-MB (CK-2) 0.62 Troponin I < 0.012 Assessment and Plan - Diagnosis (1) Acute on chronic renal failure Is this a current diagnosis for this admission?: Yes Plan: Currently his creatinine is at its baseline. (2) Dehydration Is this a current diagnosis for this admission?: Yes Plan: Resolved. (3) Chronic microcytic anemia Is this a current diagnosis for this admission?: Yes Plan: Multifactorial etiology. Continue current regimen. (4) Failure to thrive Is this a current diagnosis for this admission?: Yes (5) Hypothyroidism Is this a current diagnosis for this admission?: Yes Plan: Continue Synthroid
[2018-11-20] MEDS: MIRTAZAPINE 15 MG TABLET PO SCH (22:16)
[2018-11-20] MEDS: ATORVASTATIN CALCIUM 40 MG TABLET PO SCH (22:17)
[2018-11-21] MEDS: HEPARIN SOD (PORCINE) 5,000 UNIT/ML 1 ML SYRINGE SUBCUT SCH ×3 (05:32→22:05)
[2018-11-21] MEDS: LEVOTHYROXINE SODIUM 0.05 MG TABLET PO SCH (05:40)
[2018-11-21] MEDS: PANTOPRAZOLE SODIUM 40 MG TABLET.DR PO SCH ×2 (05:40→17:17)
[2018-11-21] MEDS: ASPIRIN 81 MG TABLET, ENT COATED PO SCH (10:14)
[2018-11-21] MEDS: LORATADINE 10 MG TABLET PO SCH (10:14)
[2018-11-21] MEDS: ISOSORBIDE MONONITRATE 30 MG TAB.ER.24H PO SCH (10:14)
[2018-11-21] MEDS: DOCUSATE SODIUM 100 MG CAPSULE PO SCH ×2 (10:14→17:14)
[2018-11-21] MEDS: CLOPIDOGREL BISULFATE 75 MG TABLET PO SCH (10:14)
[2018-11-21] MEDS: METOPROLOL TARTRATE 25 MG TABLET PO SCH ×2 (10:14→22:10)
[2018-11-21] MEDS: FOLIC ACID 1 MG TABLET PO SCH (10:15)
[2018-11-21] MEDS: FENOFIBRATE NANOCRYSTALLIZED 48 MG TABLET PO SCH (10:15)
[2018-11-21] MEDS: LOSARTAN POTASSIUM 50 MG TABLET PO SCH (10:17)
[2018-11-21] MEDS ORDERED: MIRTAZAPINE 15 MG TABLET PO ONE ×2 (13:23→18:00)
[2018-11-21] MEDS ORDERED: MEGESTROL ACETATE SUSP 400 MG/10 ML UDCUP PO ONE (17:00)
[2018-11-21] MEDS: CEFAZOLIN 1 GM/D5W RTU 1 GM/50 ML RTUPB IV SCH ×2 (17:18→23:09)
--- NOTE | 2018-11-21 17:24 | PDOC PROGRESS REPORT ---
Subjective Progress Note for:: 11/21/18 Subjective:: This is a 3 years old male patient with past medical history of coronary artery disease, myocardial infarction 3 times, hyperlipidemia, hypertension, migraine, diabetes mellitus, hypothyroidism, chronic kidney disease, diverticulitis, gastroesophageal reflux disease and GI bleeding brought with chief complaint of failure to thrive. 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 His blood thinners were stopped and he suffered an ischemic stroke with residual left-sided weakness. He was recently discharged from rehab. The patient and his feels that his discharge was premature. Patient has poor appetite and he has been getting weaker and weaker to the extent cannot self pro pel in his wheelchair. He is inactive and his ADLs has significantly impaired. This morning patient seen resting in bed he is awake alert. He is not in pain distress. 11/21/18: Patient seen and examined at the bedside. He is awake alert oriented. His right arm is inflamed and mildly swollen which could be due to cellulitis. Empirically I started him on ceftriaxone. Patient also complains of lack of appetite so I increased the dose of his Remeron from 50 mg to 30 mg p.o. daily and he is also started on Megace 400 mg p.o. daily. Reason For Visit: DEHYDRATION,ACUTE KIDNEY INJURY,FAILURE TO THRIVE Physical Exam Vital Signs: Temp Pulse Resp BP Pulse Ox 98.5 F 84 16 174/81 H 98 11/21/18 07:54 11/21/18 14:00 11/21/18 07:54 11/21/18 07:54 11/21/18 07:54 Intake & Output 11/20/18 11/21/18 11/22/18 06:59 06:59 06:59 Intake Total 630 1709 Output Total 1090 1290 Balance -460 419 Weight 69.8 kg 69.9 kg General appearance: PRESENT: no acute distress Head exam: PRESENT: atraumatic Mouth exam: PRESENT: dry mucosa Neck exam: ABSENT: carotid bruit, JVD, lymphadenopathy, thyromegaly Respiratory exam: PRESENT: clear to auscultation hunter. ABSENT: rales, rhonchi, wheezes Cardiovascular exam: PRESENT: RRR. ABSENT: diastolic murmur, rubs, systolic murmur GI/Abdominal exam: PRESENT: normal bowel sounds, soft. ABSENT: distended, guarding, mass, organolmegaly, rebound, tenderness Extremities exam: PRESENT: other - Right arm is swollen and erythematous. Results Laboratory Results: 11/16/18 05:33 11/19/18 03:53 11/15/18 11/15/18 13:00 13:00 Creatine Kinase 39 L CK-MB (CK-2) 0.62 Troponin I < 0.012 Assessment and Plan - Diagnosis (1) Right arm cellulitis Is this a current diagnosis for this admission?: Yes Plan: Patient has been started on ceftriaxone. (2) Acute on chronic renal failure Is this a current diagnosis for this admission?: Yes Plan: Currently his creatinine is at its baseline. (3) Dehydration Is this a current diagnosis for this admission?: Yes Plan: Resolved. (4) Chronic microcytic anemia Is this a current diagnosis for this admission?: Yes Plan: Multifactorial etiology. Continue current regimen. (5) Failure to thrive Is this a current diagnosis for this admission?: Yes Plan: I increase the dose of his Remeron from 15 to 30 mg p.o. daily and he is also started on Megace 400 mg p.o. daily. Hopefully this will boost his appetite. (6) Hypothyroidism Is this a current diagnosis for this admission?: Yes Plan: Continue Synthroid
[2018-11-21] MEDS: ATORVASTATIN CALCIUM 40 MG TABLET PO SCH (22:10)
[2018-11-22] MEDS: PANTOPRAZOLE SODIUM 40 MG TABLET.DR PO SCH (06:13)
[2018-11-22] MEDS: CEFAZOLIN 1 GM/D5W RTU 1 GM/50 ML RTUPB IV SCH ×2 (06:13→13:12)
[2018-11-22] MEDS: LEVOTHYROXINE SODIUM 0.05 MG TABLET PO SCH (06:13)
[2018-11-22] MEDS: HEPARIN SOD (PORCINE) 5,000 UNIT/ML 1 ML SYRINGE SUBCUT SCH ×2 (06:14→15:41)
[2018-11-22 09:33] VITALS: BP 127/63
[2018-11-22] MEDS ORDERED: MEGESTROL ACETATE SUSP 400 MG/10 ML UDCUP PO SCH (10:00)
[2018-11-22] MEDS: ISOSORBIDE MONONITRATE 30 MG TAB.ER.24H PO SCH (13:12)
[2018-11-22] MEDS: LOSARTAN POTASSIUM 50 MG TABLET PO SCH (13:12)
[2018-11-22] MEDS: DOCUSATE SODIUM 100 MG CAPSULE PO SCH (13:14)
[2018-11-22] MEDS: FOLIC ACID 1 MG TABLET PO SCH (13:14)
[2018-11-22] MEDS: CLOPIDOGREL BISULFATE 75 MG TABLET PO SCH (13:14)
[2018-11-22] MEDS: ASPIRIN 81 MG TABLET, ENT COATED PO SCH (13:14)
[2018-11-22] MEDS: LORATADINE 10 MG TABLET PO SCH (13:14)
[2018-11-22] MEDS: METOPROLOL TARTRATE 25 MG TABLET PO SCH (13:15)
[2018-11-22] MEDS: FENOFIBRATE NANOCRYSTALLIZED 48 MG TABLET PO SCH (13:16)
[2018-11-22 14:22] LABS: ANION GAP 12 (5-19); BLOOD UREA NITROGEN 15 mg/dL (7-20); CALCIUM 9.4 mg/dL (8.4-10.2); CARBON DIOXIDE 20 mmol/L (22-30); CHLORIDE 102 mmol/L (98-107); GLUCOSE 152 mg/dL (75-110); POTASSIUM 4.3 mmol/L (3.6-5.0); SODIUM 134.1 mmol/L (137-145)
--- NOTE | 2018-11-22 14:41 | PDOC TRANSFER SUMMARY ---
General - Admit/Disc Date/PCP Admission Date/Primary Care Provider: 11/16/18 15:12 GABINO PEREIRA MD Discharge Date: 11/22/18 - Discharge Diagnosis (1) Right arm cellulitis Is this a current diagnosis for this admission?: Yes (2) Acute on chronic renal failure Is this a current diagnosis for this admission?: Yes (3) Dehydration Is this a current diagnosis for this admission?: Yes (4) Chronic microcytic anemia Is this a current diagnosis for this admission?: Yes (5) Failure to thrive Is this a current diagnosis for this admission?: Yes (6) Hypothyroidism Is this a current diagnosis for this admission?: Yes - Additional Information Resuscitation Status: Full Code Home Medications: Aspirin [Lo-Dose Aspirin EC] 81 mg PO DAILY 11/15/18 Atorvastatin Calcium [Lipitor 40 mg Tablet] 40 mg PO QHS 11/15/18 Clopidogrel Bisulfate [Plavix 75 mg Tablet] 75 mg PO DAILY 11/15/18 Fenofibrate [Lipofen] 54 mg PO QHS 11/15/18 Folic Acid [Folvite 1 mg Tablet] 1 mg PO DAILY 11/15/18 Furosemide [Lasix 20 mg Tablet] 20 mg PO MOWEFR 11/15/18 Isosorbide Mononitrate [Imdur 30 mg Tablet.er] 15 mg PO DAILY 11/15/18 Levothyroxine Sodium 50 mcg PO Q6AM 11/15/18 Loratadine [Claritin 10 mg Tablet] 10 mg PO DAILY 11/15/18 Losartan Potassium [Cozaar 100 mg Tablet] 100 mg PO DAILY 11/15/18 Metoprolol Tartrate [Lopressor 25 mg Tablet] 12.5 mg PO Q12 11/15/18 Mirtazapine 7.5 mg PO QHS 11/15/18 Omeprazole 40 mg PO DAILY 11/15/18 Tramadol HCl/Acetaminophen [Tramadol-Acetaminophn 37.5-325] 1 each PO BID 11/15/18 History of Present Illness Admission Date/PCP: 11/16/18 15:12 GABINO PEREIRA MD History of Present Illness: LILIA FANG is a 83 year old male Hospital Course Hospital Course: This is a 3 years old male patient with past medical history of coronary artery disease, myocardial infarction 3 times, hyperlipidemia, hypertension, migraine, diabetes mellitus, hypothyroidism, chronic kidney disease, diverticulitis, gastroesophageal reflux disease and GI bleeding brought with chief complaint of failure to thrive. 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 His blood thinners were stopped and he suffered an ischemic stroke with residual left-sided weakness. He was recently discharged from rehab. The patient and his feels that his discharge was premature. Patient has poor appetite and he has been getting weaker and weaker to the extent cannot self propel in his wheelchair. He is inactive and his ADLs has significantly impaired. This morning patient seen resting in bed he is awake alert. He is not in pain distress. 11/21/18: Patient seen and examined at the bedside. He is awake alert oriented. His right arm is inflamed and mildly swollen which could be due to cellulitis. Empirically I started him on ceftriaxone. Patient also complains of lack of appetite so I increased the dose of his Remeron from 50 mg to 30 mg p.o. daily and he is also started on Megace 400 mg p.o. daily. 11/22/2018: Patient seen while resting comfortably. He is not in pain or distress his vitals are stable. His going to be discharged to [facility] for [facility]hab.. I will continue his home medications and I will send him with Keflex 500 mg every 6 hours for 5 days. Physical Exam Vital Signs: Temp Pulse Resp BP Pulse Ox 98.4 F 104 H 20 127/63 H 97 11/22/18 08:32 11/22/18 08:32 11/22/18 08:32 11/22/18 08:32 11/22/18 08:32 Intake & Output 11/21/18 11/22/18 11/23/18 06:59 06:59 06:59 Intake Total 1709 350 Output Total 1290 1150 Balance 419 -800 Weight 69.9 kg 66.6 kg General appearance: PRESENT: no acute distress Mouth exam: PRESENT: dry mucosa Neck exam: ABSENT: carotid bruit, JVD, lymphadenopathy, thyromegaly Respiratory exam: PRESENT: clear to auscultation hunter. ABSENT: rales, rhonchi, wheezes Neurological exam: PRESENT: alert, awake, oriented to person, oriented to place Results Laboratory Results: 11/16/18 05:33 11/22/18 13:40 11/22/18 13:40 Sodium 134.1 L Potassium 4.3 Chloride 102 Carbon Dioxide 20 L Anion Gap 12 BUN 15 Creatinine 1.92 H Est GFR ( Amer) 41 L Est GFR (Non-Af Amer) 34 L Glucose 152 H Calcium 9.4 11/15/18 11/15/18 13:00 13:00 Creatine Kinase 39 L CK-MB (CK-2) 0.62 Troponin I < 0.012 Qualifiers - * PATIENT BEING DISCHARGED WITH ANY OF THE FOLLOWING DIAGNOSIS: No Acute Heart Failure - Is this a Heart Failure Patient?: No LVEF < 40%?: No- if no continue to question #3 3. Anticoagulant therapy for permanect/persistent/paraoxysmal Afib or Aflutter: N/A
== END 2018-11-22 17:10 | DRG 683 ==
LOC: ER 12:38 → EH 16:25 → 4N 18:27 → OBSVTOIN 11-16 15:12 → 4W 11-19 14:21 → 4S 11-21 11:36
PROVIDERS: ADMIT Hospitalist; ATTEND Hospitalist
DX: N17.9 Acute kidney failure, unspecified (principal); L03.113 Cellulitis of right upper limb; I69.354 Hemiplegia and hemiparesis following cerebral infarction affecting left non-dominant side; E86.0 Dehydration; E03.9 Hypothyroidism, unspecified; I25.10 Atherosclerotic heart disease of native coronary artery without angina pectoris; E11.22 Type 2 diabetes mellitus with diabetic chronic kidney disease; I10 Essential (primary) hypertension; K21.9 Gastro-esophageal reflux disease without esophagitis; N18.3 Chronic kidney disease, stage 3 (moderate); E78.2 Mixed hyperlipidemia; D63.8 Anemia in other chronic diseases classified elsewhere; I25.2 Old myocardial infarction; I69.391 Dysphagia following cerebral infarction; I69.392 Facial weakness following cerebral infarction; Z80.9 Family history of malignant neoplasm, unspecified; Z79.899 Other long term (current) drug therapy; Z95.2 Presence of prosthetic heart valve; Z95.5 Presence of coronary angioplasty implant and graft; Z95.0 Presence of cardiac pacemaker; Z95.1 Presence of aortocoronary bypass graft; Z87.891 Personal history of nicotine dependence; Z82.61 Family history of arthritis; Z83.3 Family history of diabetes mellitus; Z82.49 Family history of ischemic heart disease and other diseases of the circulatory system; Z79.82 Long term (current) use of aspirin; Z79.02 Long term (current) use of antithrombotics/antiplatelets
CPT/HCPCS: 36415; 80048; 80053; 80069; 81001; 82550; 82553; 82962; 83735; 84484; 85025; 93005; 93010; 96360; 99285; G0378; J0690; J1644; J3490; J7030

== ENCOUNTER 2018-11-28 12:49 | Emergency (ER) | payer MEDICARE, OTHER ==
[2018-11-28 14:21] LABS: APPEARANCE,URINE CLEAR; BILIRUBIN,URINE NEGATIVE (NEGATIVE); COLOR,URINE YELLOW; GLUCOSE, URINE NEGATIVE (NEGATIVE); KETONES,URINE NEGATIVE (NEGATIVE); LEUKOCYTE ESTERASE,URINE NEGATIVE (NEGATIVE); NITRITE,URINE NEGATIVE (NEGATIVE); PROTEIN,URINE NEGATIVE (NEGATIVE); URINE SPECIFIC GRAVITY 1.015; UROBILINOGEN,URINE NEGATIVE mg/dL (<2.0)
[2018-11-28 15:49] LABS: ABSOLUTE BASOPHILS # (AUTO) 0.1 10^3/uL (0.0-0.2); ABSOLUTE EOSINOPHILS # (AUTO) 1.3 10^3/uL (0.0-0.6); ABSOLUTE LYMPHOCYTES (AUTO) 0.8 10^3/uL (0.5-4.7); ABSOLUTE MONOCYTES (AUTO) 0.9 10^3/uL (0.1-1.4); ABSOLUTE NEUT (AUTO) 7.2 10^3/uL (1.7-8.2); BASOPHILS % (AUTO) 1.1 % (0-2); EOSINOPHILS % (AUTO) 12.6 % (0-6); HEMATOCRIT 30.6 % (37.9-51.0); LYMPHOCYTES % (AUTO) 8.1 % (13-45); MEAN CORPUSCULAR HEMOGLOBIN 25.8 pg (27.0-33.4); MEAN CORPUSCULAR HGB CONC 32.5 g/dL (32.0-36.0); MEAN CORPUSCULAR VOLUME 79 fl (80-97); MONOCYTES % (AUTO) 8.7 % (3-13); PLATELET COUNT 436 10^3/uL (150-450); RED BLOOD COUNT 3.87 10^6/uL (4.35-5.55); RED CELL DISTRIBUTION WIDTH 19.8 % (11.5-14.0); SEGMENTED NEUTROPHILS % (AUTO) 69.5 % (42-78); TOTAL CELLS COUNTED % (AUTO) 100 %; WHITE BLOOD COUNT 10.4 10^3/uL (4.0-10.5)
[2018-11-28 16:01] LABS: ALANINE AMINOTRANSFERASE 16 U/L (21-72); ALBUMIN 2.9 g/dL (3.5-5.0); ALKALINE PHOSPHATASE 76 U/L (38-126); ANION GAP 9 (5-19); ASPARTATE AMINO TRANSFERASE 20 U/L (17-59); BILIRUBIN,DIRECT 0.5 mg/dL (0.0-0.4); BILIRUBIN,TOTAL 0.6 mg/dL (0.2-1.3); BLOOD UREA NITROGEN 27 mg/dL (7-20); CALCIUM 9.4 mg/dL (8.4-10.2); CARBON DIOXIDE 19 mmol/L (22-30); CHLORIDE 108 mmol/L (98-107); GLUCOSE 84 mg/dL (75-110); POTASSIUM 4.9 mmol/L (3.6-5.0); TOTAL PROTEIN 6.4 g/dL (6.3-8.2)
[2018-11-28] MEDS ORDERED: RINGERS SOLUTION,LACTATED 1,000 ML IV ONE (17:15)
--- NOTE | 2018-11-28 17:53 | RADIOLOGY REPORT (SQ) ---
EXAM DESCRIPTION: CHEST 2 VIEWS COMPLETED DATE/TIME: 11/28/2018 5:29 pm REASON FOR STUDY: cough COMPARISON: 08/02/2018 EXAM PARAMETERS: NUMBER OF VIEWS: two views TECHNIQUE: Digital Frontal and Lateral radiographic views of the chest acquired. RADIATION DOSE: NA LIMITATIONS: none FINDINGS: LUNGS AND PLEURA: Bibasilar scarring. No opacities, masses or pneumothorax. No pleural ef fusion. MEDIASTINUM AND HILAR STRUCTURES: No masses or contour abnormalities. HEART AND VASCULAR STRUCTURES: The cardiac silhouette appears prominent, measuring at the upper limit s of normal. No evidence for failure. BONES: No acute findings. HARDWARE: Transvenous pacer appears stable in position. The leads appear to be intact. Midline surg ical changes, stable. OTHER: No other significant finding. IMPRESSION: No evidence of acute cardiopulmonary abnormality. TECHNICAL DOCUMENTATION: JOB ID: [id number] [employer]- All Rights Reserved Reading location - IP/workstation name: [email or web address]
[2018-11-28 18:35] LABS: CREATINE KINASE MB 0.66 ng/mL (<4.55); TROPONIN I 0.028 ng/mL
--- NOTE | 2018-11-28 20:05 | ER Document Report ---
ED General - General Chief Complaint: Low Blood Pressure Stated Complaint: POSSIBLE DEHYDRATION Time Seen by Provider: 11/28/18 16:33 Primary Care Provider: YOLANDA ANDINO MD [Primary Care Provider] - Follow up tomorrow Mode of Arrival: Medic Information source: Patient, Relative, Emergency Med Personnel, [facility] Records, Outside Facility Records Notes: 83-year-old male with type 2 diabetes, coronary artery disease, hypertension, hyperlipidemia, recent stroke presents from [facility] with his who is concerned for dehydration, weakness and decrease in appetite. reports that nursing found the patient to be hypotensive and hypoxic today when they did his vitals. Patient has been in [place] for 2 weeks for rehabilitation after his stroke. He states he just does not have an appetite. He repeatedly states that if you leave me in this [facility] I am going to . Patient has no physical complaints. states that nursing facility offered to hydrate the patient but that she declined and wanted him to be evaluated in the emergency department. Patient is currently being treated for cellulitis of the right arm. TRAVEL OUTSIDE OF THE [place] IN LAST 30 DAYS: No - HPI Onset: Other Onset/Duration: Gradual, Persistent Quality of pain: Achy Associated symptoms: Body/muscle aches - Chronic arthritic pain, Weakness. denies: Chest pain, Chills, Productive cough, Fever, Headache, Hurts to breath, Leg swelling, Nausea, Vomiting, Shortness of breath Exacerbated by: Denies Relieved by: Denies Similar symptoms previously: Yes Recently seen / treated by doctor: Yes - Related Data Allergies/Adverse Reactions: No Known Allergies Allergy (Verified 08/02/18 01:31) Past Medical History - General Information source: Patient, Relative, [facility] Records - Social History Smoking Status: Never Smoker Chew tobacco use (# tins/day): No Frequency of alcohol use: None Drug Abuse: None Lives with: Assisted Family History: Arthritis, DM, Hypertension, Malignancy, Other - cancer Patient has suicidal ideation: No Patient has homicidal ideation: No - Past Medical History Cardiac Medical History: Reports: Hx Coronary Artery Disease, Hx Heart Attack - x3, Hx Hypercholesterolemia, Hx Hypertension Neurological Medical History: Reports: Hx Migraine. Denies: Hx Seizures Endocrine Medical History: Reports: Hx Diabetes Mellitus Type 1, Hx Diabetes Mellitus Type 2, Hx Hypothyroidism Renal/ Medical History: Denies: Hx Peritoneal Dialysis GI Medical History: Reports: Hx Diverticulitis, Hx Gastroesophageal Reflux Disease Musculoskeletal Medical History: Reports Hx Arthritis Psychiatric Medical History: Denies: Hx Depression Past Surgical History: Reports: Hx Abdominal Surgery - hiatal hernia., Hx Cardiac Catheterization, Hx Cardiac Surgery - packemaker., Hx Cholecystectomy, Hx Coronary Artery Bypass Graft, Hx Open Heart Surgery - valve replacement, pacemaker., Hx Valve Replacement, Other - Multiple colonocopies - Immunizations Immunizations up to date: Yes Hx Diphtheria, Pertussis, Tetanus Vaccination: Yes Hx Pneumococcal Vaccination: 06/05/15 Review of Systems - Review of Systems Constitutional: Malaise, Weakness, Weight loss EENT: denies: Difficulty swallowing Cardiovascular: denies: Chest pain, Palpitations, Dyspnea, Syncope, Dizziness, Edema Respiratory: denies: Cough, Short of breath Gastrointestinal: Poor appetite, Poor fluid intake. denies: Abdominal pain, Nausea, Vomiting Genitourinary: denies: Dysuria, Flank pain Male Genitourinary: No symptoms reported Musculoskeletal: denies: Back pain Skin: Rash Neurological/Psychological: Depression, Weakness. denies: Headaches, Speech impairment, Numbness -: Yes All other systems reviewed and negative Physical Exam - Vital signs Vitals: Pulse Ox 86 L 11/28/18 13:07 - Notes Notes: PHYSICAL EXAMINATION: GENERAL: Frail, cachectic, no acute distress HEAD: Atraumatic, normocephalic. EYES: Pupils equal round and reactive to light, extraocular movements intact, sclera anicteric, conjunctiva are normal. ENT: Nares patent, oropharynx clear without exudates. Dry mucous membranes. NECK: Normal range of motion, supple without lymphadenopathy LUNGS: Breath sounds clear to auscultation bilaterally and equal. No wheezes rales or rhonchi. HEART: Regular rate and rhythm without murmurs ABDOMEN: Soft, nontender, nondistended abdomen. No guarding, no rebound. No masses appreciated. Musculoskeletal: Normal range of motion, no pitting or edema. No cyanosis. NEUROLOGICAL: Cranial nerves grossly intact. Normal speech, normal gait. Normal sensory, motor exams PSYCH: Normal mood, normal affect. SKIN: Warm, Dry, normal turgor, no rashes or lesions noted. Course - Re-evaluation Re-evalutation: 11/28/18 20:57 Laboratory 11/28/18 11/28/18 11/28/18 14:00 15:28 15:28 WBC 10.4 RBC 3.87 L Hgb 10.0 L Hct 30.6 L MCV 79 L MCH 25.8 L MCHC 32.5 RDW 19.8 H Plt Count 436 Seg Neutrophils % 69.5 Lymphocytes % 8.1 L Monocytes % 8.7 Eosinophils % 12.6 H Basophils % 1.1 Absolute Neutrophils 7.2 Absolute Lymphocytes 0.8 Absolute Monocytes 0.9 Absolute Eosinophils 1.3 H Absolute Basophils 0.1 Sodium 136.0 L Potassium 4.9 Chloride 108 H Carbon Dioxide 19 L Anion Gap 9 BUN 27 H Creatinine 2.66 H Est GFR ( Amer) 28 L Est GFR (Non-Af Amer) 23 L Glucose 84 Calcium 9.4 Total Bilirubin 0.6 Direct Bilirubin 0.5 H Neonat Total Bilirubin Not Reportable Neonat Direct Bilirubin Not Reportable Neonat Indirect Bili Not Reportable AST 20 ALT 16 L Alkaline Phosphatase 76 Creatine Kinase CK-MB (CK-2) Troponin I Total Protein 6.4 Albumin 2.9 L Urine Color YELLOW Urine Appearance CLEAR Urine pH 6.0 Ur Specific [place] 1.015 Urine Protein NEGATIVE Urine Glucose (UA) NEGATIVE Urine Ketones NEGATIVE Urine Blood NEGATIVE Urine Nitrite NEGATIVE Urine Bilirubin NEGATIVE Urine Urobilinogen NEGATIVE Ur Leukocyte Esterase NEGATIVE Urine WBC (Auto) 2 U Hyaline Cast (Auto) 6 Urine Bacteria (Auto) TRACE Squamous Epi Cells Auto <1 Urine Mucus (Auto) RARE Urine Ascorbic Acid NEGATIVE 11/28/18 11/28/18 15:28 17:40 WBC RBC Hgb Hct MCV MCH MCHC RDW Plt Count Seg Neutrophils % Lymphocytes % Monocytes % Eosinophils % Basophils % Absolute Neutrophils Absolute Lymphocytes Absolute Monocytes Absolute Eosinophils Absolute Basophils Sodium Potassium Chloride Carbon Dioxide Anion Gap BUN Creatinine Est GFR ( Amer) Est GFR (Non-Af Amer) Glucose Calcium Total Bilirubin Direct Bilirubin Neonat Total Bilirubin Neonat Direct Bilirubin Neonat Indirect Bili AST ALT Alkaline Phosphatase Creatine Kinase 22 L CK-MB (CK-2) 0.66 Troponin I 0.028 Total Protein Albumin Urine Color Urine Appearance Urine pH Ur Specific [place] Urine Protein Urine Glucose (UA) Urine Ketones Urine Blood Urine Nitrite Urine Bilirubin Urine Urobilinogen Ur Leukocyte Esterase Urine WBC (Auto) U Hyaline Cast (Auto) Urine Bacteria (Auto) Squamous Epi Cells Auto Urine Mucus (Auto) Urine Ascorbic Acid Chest X-Ray 11/28/18 17:15 IMPRESSION: No evidence of acute cardiopulmonary abnormality. Temp Pulse Resp BP Pulse Ox 98.7 F 15 111/70 99 11/28/18 13:32 11/28/18 16:01 11/28/18 16:01 11/28/18 16:01 83-year-old male with type 2 diabetes, coronary artery disease, hypertension, hyperlipidemia, recent stroke presents from [facility] with his who is concerned for dehydration, weakness and decrease in appetite. reports that nursing found the patient to be hypotensive and hypoxic today when they did his vitals. Patient has been in [place] for 2 weeks for rehabilitation after his stroke. He states he just does not have an appetite. Patient did receive 2 L of IV fluids and on reexamination he is alert, awake and more interactive. Family is debating whether or not they want to bring him back to [facility]. CBC shows no leukocytosis but does show a stable anemia. Patient's creatinine is at his baseline of 2.66. Chest x-ray within normal limits. Patient was discharged back to [facility] in stable condition. 11/28/18 20:58 Patient was evaluated and treated as appropriate for the patient's presenting symptoms and complaint, with consideration of any critical or life threatening conditions that may be associated with their obtained history and exam as noted above. All results were discussed with patient and the patient's family members were at the bedside, patient provided the opportunity to ask questions, and express concerns. Patient was educated on treatments based on their presumed diagnosis as noted above. At this time we will discharge the patient with return precautions and follow-up recommendations. Verbal discharge instructions given a the bedside. Medication warnings reviewed. Patient is in agreement with this plan and has verbalized understanding of return precautions. After careful consideration I feel that that patient can be safely discharged from the emergency department, they were advised to followup with a primary care physician in 2-3 days. Dictation on this chart was performed using voice recognition software and may result in unintended grammatical, spelling, syntax or errors. - Vital Signs Vital signs: Temp Pulse Resp BP Pulse Ox 98.7 F 15 111/70 99 11/28/18 13:32 11/28/18 16:01 11/28/18 16:01 11/28/18 16:01 - Laboratory Result Diagrams: 11/28/18 15:28 11/28/18 15:28 Laboratory results interpreted by me: 11/28/18 11/28/18 11/28/18 15:28 15:28 15:28 RBC 3.87 L Hgb 10.0 L Hct 30.6 L MCV 79 L MCH 25.8 L RDW 19.8 H Lymphocytes % 8.1 L Eosinophils % 12.6 H Absolute Eosinophils 1.3 H Sodium 136.0 L Chloride 108 H Carbon Dioxide 19 L BUN 27 H Creatinine 2.66 H Est GFR ( Amer) 28 L Est GFR (Non-Af Amer) 23 L Direct Bilirubin 0.5 H ALT 16 L Creatine Kinase 22 L Albumin 2.9 L - Diagnostic Test Radiology reviewed: Image reviewed, Reports reviewed - EKG Interpretation by Me EKG shows normal: Sinus rhythm Rate: Normal Rhythm: NSR When compared to previous EKG there are: No significant change Discharge - Discharge Clinical Impression: Weakness, Physical deconditioning, Poor appetite, Dehydration Condition: Stable Disposition: SNF-Other Instructions: Dehydration ([facility]), Weakness ([facility]) Referrals: YOLANDA ANDINO MD [Primary Care Provider] - Follow up tomorrow
--- NOTE | 2018-11-28 22:01 | EKG REPORT ---
SEVERITY:- ABNORMAL ECG - SINUS RHYTHM PROBABLE INFERIOR INFARCT, AGE INDETERMINATE CONSIDER ANTERIOR INFARCT LATERAL LEADS ARE ALSO INVOLVED : Confirmed by: Cathy Hilton 28-Nov-2018 22:00:55
[2018-11-29 00:59] VITALS: BP 138/72
== END 2018-11-29 00:59 ==
LOC: ER 12:49
DX: E86.0 Dehydration (principal); D64.9 Anemia, unspecified; F32.9 Major depressive disorder, single episode, unspecified; R63.0 Anorexia; R63.4 Abnormal weight loss; R53.1 Weakness; R53.81 Other malaise; L03.113 Cellulitis of right upper limb; M19.90 Unspecified osteoarthritis, unspecified site; E11.9 Type 2 diabetes mellitus without complications; I25.10 Atherosclerotic heart disease of native coronary artery without angina pectoris; I10 Essential (primary) hypertension; Z86.73 Personal history of transient ischemic attack (TIA), and cerebral infarction without residual deficits; Z95.0 Presence of cardiac pacemaker; Z95.2 Presence of prosthetic heart valve; Z95.1 Presence of aortocoronary bypass graft
CPT/HCPCS: 93005; 99285; 96360; 96361; 36415; 82553; 82550; 85025; 80053; 81001; 84484; 71046; 93010; J7120

== ENCOUNTER 2020-05-06 08:22 | Day surgery (SDC) | payer MEDICARE, OTHER ==
[~2020-05-06 08:22] MED LIST: CHONDR SU A NA/HYALUR INTRAOC KIT (SURGICARE) ONE; EPINEPHRINE INJ/PF 1 MG/1 ML AMPULE ONE; KETOROLAC TROMETHAMINE 0.45% 4 DROP/0.4 ML DROPERETTE OD PRN; LIDOCAINE 1%/PHENYLEPHRINE 1.5% 1 ML VIAL ONE
[2020-05-06] MEDS ORDERED: MIDAZOLAM 2 MG/2 ML INJ ONE (09:14)
[2020-05-06] MEDS: CYCLOPENTOLATE 0.2%/PHENYLEPHRINE 1% OPH SOLN 2 ML OD PRN ×3 (09:35→09:55)
[2020-05-06] MEDS: BESIFLOXACIN HCL 0.6% OPH SUSP 5 ML BOTTLE OD PRN ×4 (09:35→10:34)
[2020-05-06] MEDS: TROPICAMIDE 1% OPH SOLN 15 ML OD PRN ×3 (09:35→09:55)
[2020-05-06] MEDS: TETRACAINE HCL 0.5% OPH SOLN 4 ML OD PRN ×3 (09:36→10:12)
[2020-05-06] MEDS: DORZOLAMIDE HCL 2%/TIMOLOL MALEAT 0.5% OPH SOLN 10 ML OD PRN ×2 (10:34)
[2020-05-06] MEDS: PREDNISOLONE ACETATE 1% OPH SUSP 5 ML OD PRN ×2 (10:34)
--- NOTE | 2020-05-06 16:35 | Operative Report ---
Operative Report-[facility] Operative Report: DATE OF SURGERY: May 06, 2020 PREOPERATIVE DIAGNOSIS: NUCLEAR CATARACT, RIGHT EYE. POSTOPERATIVE DIAGNOSIS: NUCLEAR CATARACT, RIGHT EYE. PROCEDURE PERFORMED: PHACOEMULSIFICATION WITH POSTERIOR CHAMBER INTRAOCULAR LENS IMPLANT, RIGHT EYE. SURGEON: Ronny Watkins DO MEDICATIONS AND ANESTHESIA: Versed: IV Versed Tetracaine drops: 1 to 2 drops given as needed COMPLICATION: None INDICATIONS FOR SURGERY: Medical necessity: Best corrected visual acuity worse than 20/40 secondary to cataracts with impairment of ability to carry out needs or desired activities, blurred vision, visual distortion, reduced contrast sensitivity and/or glare with association functional impairment and supporting documentation/testing, and cataracts causing symptomatic impairment of visual functions not corrected with tolerable changes in glasses or contact lenses interfering with activities of daily life. PROCEDURE: Consent: The risks, benefits and alternatives of this procedures was discussed with the patient. The patient read and signed the consent forms, was identified and was seated in the exam chair. IOL: MX 60 E 20.5 IOL Diopters: Phacoemulsification with posterior chamber intraocular lens implant: The face was prepped with 5% povidone iodine solution, and a few drops of 5% povidone iodine solution was instilled into the inferior fornix. A non-fenestrated drape was placed over the eye and the lids were parted with the speculum. A paracentesis was made with a 15 degree blade, and 1% lidocaine MPF followed by viscoelastic was injected into the anterior chamber. A 2.4 mm metal micro- keratome was used to create a temporal clear corneal incision. A circular anterior capsulorrhexis was created, followed by hydro-dissection and hydro- delineation. The phacoemulsification hand piece was inserted and the nucleus was removed with the Phaco chop technique. The irrigation-aspiration hand piece was used to remove the residual cortex, and vacuum the posterior capsule. The capsular bag was inflated and viscoelastic and the above-mentioned IOL was injected into the eye with care to insert both leaning and trailing haptics in the capsular bag. The irrigation/aspiration hand piece was reinserted to remove residual viscoelastic from the capsular bag and anterior chamber. The corneal incision was hydrated, and anterior chamber was inflated with sterile BSS via the paracentesis site, and found to be watertight. Postop medication: 1 drop of prednisolone into operative by followed by 1 drop of Cosopt into operative eye followed by 1 drop of Besivance intraoperative by other:
== END 2020-05-06 11:05 | disposition home or self-care (01) ==
LOC: SC 08:22
PROVIDERS: ATTEND Ophthalmology
DX: H25.11 Age-related nuclear cataract, right eye (principal); I25.10 Atherosclerotic heart disease of native coronary artery without angina pectoris; M19.90 Unspecified osteoarthritis, unspecified site; I10 Essential (primary) hypertension; E03.9 Hypothyroidism, unspecified; Z86.73 Personal history of transient ischemic attack (TIA), and cerebral infarction without residual deficits
CPT/HCPCS: 66984; V2632; J2250; J3490 ×2; A9270; J0171; 142

== ENCOUNTER 2020-05-20 06:34 | Day surgery (SDC) | payer MEDICARE, OTHER ==
[~2020-05-20 06:34] MED LIST changes: -CHONDR SU A NA/HYALUR INTRAOC KIT (SURGICARE) ONE; -EPINEPHRINE INJ/PF 1 MG/1 ML AMPULE ONE; -KETOROLAC TROMETHAMINE 0.45% 4 DROP/0.4 ML DROPERETTE OD PRN; +KETOROLAC TROMETHAMINE 0.45% 4 DROP/0.4 ML DROPERETTE OS PRN; -LIDOCAINE 1%/PHENYLEPHRINE 1.5% 1 ML VIAL ONE
[2020-05-20] MEDS ORDERED: MIDAZOLAM 2 MG/2 ML INJ ONE (06:36)
[2020-05-20] MEDS: TROPICAMIDE 1% OPH SOLN 15 ML OS PRN ×3 (06:58→07:30)
[2020-05-20] MEDS: CYCLOPENTOLATE 0.2%/PHENYLEPHRINE 1% OPH SOLN 2 ML OS PRN ×3 (06:58→07:30)
[2020-05-20] MEDS: TETRACAINE HCL 0.5% OPH SOLN 4 ML OS PRN ×3 (06:58→07:59)
[2020-05-20] MEDS: BESIFLOXACIN HCL 0.6% OPH SUSP 5 ML BOTTLE OS PRN ×4 (06:58→08:20)
[2020-05-20] MEDS ORDERED: EPINEPHRINE INJ/PF 1 MG/1 ML AMPULE ONE (07:33)
[2020-05-20] MEDS ORDERED: CHONDR SU A NA/HYALUR INTRAOC KIT (SURGICARE) ONE (07:33)
[2020-05-20] MEDS ORDERED: LIDOCAINE 1%/PHENYLEPHRINE 1.5% 1 ML VIAL ONE (07:33)
[2020-05-20] MEDS: DORZOLAMIDE HCL 2%/TIMOLOL MALEAT 0.5% OPH SOLN 10 ML OS PRN ×2 (08:09→08:20)
[2020-05-20] MEDS: PREDNISOLONE ACETATE 1% OPH SUSP 5 ML OS PRN ×2 (08:09→08:20)
--- NOTE | 2020-05-20 16:00 | Operative Report ---
Operative Report-[facility] Operative Report: DATE OF SURGERY: May 20, 2020 PREOPERATIVE DIAGNOSIS: NUCLEAR CATARACT, LEFT EYE. POSTOPERATIVE DIAGNOSIS: NUCLEAR CATARACT, LEFT EYE. PROCEDURE PERFORMED: PHACOEMULSIFICATION WITH POSTERIOR CHAMBER INTRAOCULAR LENS IMPLANT, LEFT EYE. SURGEON: Ronny Watkins DO MEDICATIONS AND ANESTHESIA: Versed: IV Versed Tetracaine drops: 1 to 2 drops given as needed COMPLICATION: None INDICATIONS FOR SURGERY: Medical necessity: Best corrected visual acuity worse than 20/40 secondary to cataracts with impairment of ability to carry out needs or desired activities, blurred vision, visual distortion, reduced contrast sensitivity and/or glare with association functional impairment and supporting documentation/testing, and cataracts causing symptomatic impairment of visual functions not corrected with tolerable changes in glasses or contact lenses interfering with activities of daily life. PROCEDURE: Consent: The risks, benefits and alternatives of this procedures was discussed with the patient. The patient read and signed the consent forms, was identified and was seated in the exam chair. IOL: MX 60 E 21.0 IOL Diopters: Phacoemulsification with posterior chamber intraocular lens implant: The face was prepped with 5% povidone iodine solution, and a few drops of 5% povidone iodine solution was instilled into the inferior fornix. A non-fenestrated drape was placed over the eye and the lids were parted with the speculum. A paracentesis was made with a 15 degree blade, and 1% lidocaine MPF followed by viscoelastic was injected into the anterior chamber. A 2.4 mm metal micro- keratome was used to create a temporal clear corneal incision. A circular anterior capsulorrhexis was created, followed by hydro-dissection and hydro- delineation. The phacoemulsification hand piece was inserted and the nucleus was removed with the Phaco chop technique. The irrigation-aspiration hand piece was used to remove the residual cortex, and vacuum the posterior capsule. The capsular bag was inflated and viscoelastic and the above-mentioned IOL was injected into the eye with care to insert both leaning and trailing haptics in the capsular bag. The irrigation/aspiration hand piece was reinserted to remove residual viscoelastic from the capsular bag and anterior chamber. The corneal incision was hydrated, and anterior chamber was inflated with sterile BSS via the paracentesis site, and found to be watertight. Postop medication:1 drop of prednisolone into operative by followed by 1 drop of Cosopt into operative eye followed by 1 drop of Besivance intraoperative by Other:
== END 2020-05-20 08:54 | disposition home or self-care (01) ==
LOC: SC 06:34
PROVIDERS: ATTEND Ophthalmology
DX: H25.12 Age-related nuclear cataract, left eye (principal); E10.36 Type 1 diabetes mellitus with diabetic cataract; Z98.41 Cataract extraction status, right eye; M19.90 Unspecified osteoarthritis, unspecified site; I25.10 Atherosclerotic heart disease of native coronary artery without angina pectoris; I10 Essential (primary) hypertension; E03.9 Hypothyroidism, unspecified; Z87.891 Personal history of nicotine dependence; I25.2 Old myocardial infarction; Z95.0 Presence of cardiac pacemaker; D64.9 Anemia, unspecified; K21.9 Gastro-esophageal reflux disease without esophagitis
CPT/HCPCS: 66984; 82962; V2632; J2250; J3490 ×2; A9270; J0171